=== PATIENT | female | born 1950 | race Caucasian/White ===

== ENCOUNTER 2017-01-08 10:23 | Inpatient (IN) | payer BC, OTHER ==
[~2017-01-08] VITALS: Ht 162.6 cm; Wt 43.0 kg
[~2017-01-08 10:23] MED LIST: ANCEF,KEFZ2 GM/100 M IV; ASPIRIN500 MG PO; Adderall PO; BACLOFEN10 MG PO; BACTRIM,SEPT1 TABLET PO; CLONAZEPAM0.5 MG PO; CLONIDINE HCL0.1 MG PO; DESYREL 150 MG150 MG PO; DESYREL100 MG PO; DEXILANT60 MG PO; DILAUDID1 MG/ML IV; DILAUDID2 MG PO; DOLOPHINE HCL5 MG PO; DURAGESIC75 MCG TD; EXALGO32 MG PO; HYDROCHLOROTH12.5 M3 PO; HYDROMORPHONE HC4 MG PO; IBUPROFEN100 M1 PO; LEVOFLOXACIN500 MG PO; LEXAPRO10 MG PO; LORAZEPAM0.5 MG PO; LOVENOX40 MG/0.4 SC; Lexapro PO; MACROBID100 MG PO; METHADONE5 MG PO; MORPHINE SULFAT15 M1 PO; MOTRIN800 MG PO; NEXIUM40 MG PO; OXYCODONE HCL20 M1 PO; OXYCODONE-APAP1 EACH PO; PERCOCET 5/31 TABLET PO; PROMETHAZINE HC25 M1 PO; SUBOXONE 12 MG1 EACH SL; SUBOXONE 8 M1 TABLET PO; TORADOL10 MG PO; TRAMADOL HCL50 MG PO; TRAZODONE HCL300 MG PO; TRILEPTAL150 MG PO; TRILEPTAL75 MG PO; TYLENOL REGULA325 MG PO; ULTRAM50 MG PO; ZANTAC300 MG PO; ZOFRAN ODT4 MG PO
[2017-01-08 10:38] LABS: POINT-OF-CARE METER ID UU14100415
[2017-01-08 11:15] LABS: ADD MIUA? YES; BILIRUBIN NEGATIVE; BLOOD SMALL; COLOR YELLOW ((YELLOW)); GLUCOSE (STRIP) NEGATIVE; KETONES 5; LEUKOCYTES NEGATIVE; NITRITE NEGATIVE; PROTEIN (STRIP) NEGATIVE; SPECIFIC GRAVITY 1.014 (1.000-1.030); UROBILINOGEN 0.2 MG/DL (0.2-1.0)
[2017-01-08 11:20] LABS: BACTERIA NONE SEEN /HPF; EPITHELIAL CELLS RARE /HPF; MUCUS TRACE /LPF; RED BLOOD CELLS 0-5 /HPF (0-5); UCUL ADDED? NO
[2017-01-08 11:48] LABS: AMPHETAMINES QUANT VALUE 0 NG/ML; BARBITUATES QUANT VALUE 0 NG/ML; BENZODIAZEPINES QUANT VALUE 0 NG/ML; BENZODIAZEPINES, URINE SCREEN Negative (200 ng/mL); MARIJUANA QUANT VALUE 0 NG/ML; OPIATES QUANTITATIVE VALUE 0 NG/ML; PHENCYCLIDINE QUANT VALUE 0 NG/ML
[2017-01-08 12:10] LABS: CREATININE 0.6 mg/dL (0.6-1.3); POTASSIUM 5.9 mEq/L (3.7-5.4)
[2017-01-08 12:26] LABS: EOSINOPHIL (%) 0.4 % (0-5); EOSINOPHIL COUNT 0.1 K/uL (0-0.3); HEMATOCRIT 35.6 % (36.0-46.0); IMMATURE GRANULOCYTE (%) 0.3 % (0.0-0.7); LYMPHOCYTE COUNT 0.9 K/uL (1.0-2.8); MCH 30.8 PG (29.0-34.0); MCHC 32.9 G/DL (30.0-36.0); MCV 93.7 FL (83-99); MEAN PLAT.VOLUME 10.8 uM^3 (9.5-12.4); NEUTROPHIL (%) 87.8 % (45-76); PLATELET COUNT 226 K/uL (156-360); RBC DIS.WIDTH-CV 13.1 % (11.8-14.6); RBC DIS.WIDTH-SD 44.4 % (39-53); WHITE BLOOD COUNT 15.9 K/uL (4.1-10.2)
[2017-01-08 12:32] LABS: AMYLASE 89 IU/L (1-118); CHLORIDE 101 mEq/L (99-109); POTASSIUM 4.3 mEq/L (3.7-5.4); SODIUM 136 mEq/L (136-147)
[2017-01-08 12:33] LABS: GLUCOSE 73 mg/dL (70-99)
[2017-01-08 12:35] LABS: ANION GAP 12 MEQ/L (2-14)
[2017-01-08 12:37] LABS: GFR ESTIMATE (CALCULATED) > 59 mL/min/; SERUM ETHYL ALCOHOL < 10 mg/dL
[2017-01-08 12:38] LABS: UREA NITROGEN (BUN) 11 mg/dL (9-23)
[2017-01-08 12:39] LABS: INTER. NORMALIZED RATIO 1.1; PROTHROMBIN TIME 11.3 (9.2-11.2); PTT 24.7 (25-32)
[2017-01-08 12:40] LABS: LIPASE 19 U/L (1.0-51.0)
[2017-01-08 12:43] LABS: TROP-I INTERPRETATION NEGATIVE; TROPONIN-I 0.02 ng/mL (0.0-0.30)
[2017-01-08 14:27] LABS: SALICYLATE < 5.0 MG/DL (15-30)
[2017-01-08 15:25] LABS: AMPHETAMINE NEGATIVE (500 ng/mL); BARBITURATES NEGATIVE (200 ng/mL); BENZODIAZEPINES NEGATIVE (150 ng/mL); COCAINE NEGATIVE (150 ng/mL); INTERNAL CONTROLS VALID? YES; METHADONE NEGATIVE (200 ng/mL); METHAMPHETAMINE NEGATIVE (500 ng/mL); OPIATES (MORPHINE) NEGATIVE (100 ng/mL); OXYCODONE NEGATIVE (100 ng/mL); PHENCYCLIDINE NEGATIVE (25 ng/mL); PROPOXYPHENE NEGATIVE (300 ng/mL); THC CANNABINOIDS NEGATIVE (50 ng/mL); TRICYCLIC ANTIDEPRESSANTS PRESUMPTIVE POSITIVE (300 ng/mL)
[2017-01-08] MEDS ORDERED: TRILEPTAL300 MG PO (16:33)
[2017-01-08] MEDS ORDERED: SUBOXONE 8 MG-1 EAC2 SL (16:35)
[2017-01-08] MEDS ORDERED: GABAPENTIN400 MG PO (16:35)
[2017-01-08] MEDS ORDERED: TIZANIDINE HCL4 MG PO (16:36)
[2017-01-08] MEDS ORDERED: MELOXICAM15 MG PO (16:36)
[2017-01-08] MEDS ORDERED: ZOFRAN4 MG PO (16:37)
[2017-01-08] MEDS ORDERED: MICROZIDE12.5 M1 PO (16:37)
[2017-01-08 16:47] LABS: TROP-I INTERPRETATION NEGATIVE; TROPONIN-I 0.03 ng/mL (0.0-0.30)
[2017-01-08 17:00] VITALS: BP 147/71
[2017-01-08 19:42] VITALS: BP 130/80
[2017-01-08 23:56] VITALS: BP 130/70
[2017-01-09 04:15] VITALS: BP 106/56
[2017-01-09 07:15] LABS: EOSINOPHIL (%) 1.6 % (0-5); EOSINOPHIL COUNT 0.2 K/uL (0-0.3); HEMATOCRIT 38.2 % (36.0-46.0); IMMATURE GRANULOCYTE (%) 0.2 % (0.0-0.7); LYMPHOCYTE COUNT 1.9 K/uL (1.0-2.8); MCH 29.5 PG (29.0-34.0); MCHC 31.7 G/DL (30.0-36.0); MCV 93.2 FL (83-99); MONOCYTE (%) 8.4 % (3-12); NEUTROPHIL (%) 73.8 % (45-76); NEUTROPHIL COUNT 9.1 K/uL (1.8-6.4); RBC DIS.WIDTH-CV 13.3 % (11.8-14.6); RBC DIS.WIDTH-SD 45.6 % (39-53); WHITE BLOOD COUNT 12.3 K/uL (4.1-10.2)
[2017-01-09 07:53] LABS: ANION GAP 10 MEQ/L (2-14); CHLORIDE 103 MEQ/L (99-109); GFR ESTIMATE (CALCULATED) > 59 mL/min/; GLUCOSE 85 mg/dL (70-99); SAMPLE HEMOLYSIS CHECK 0; SAMPLE ICTERIC CHECK 0; SAMPLE LIPEMIA CHECK 0; SODIUM 137 MEQ/L (136-147); UREA NITROGEN (BUN) 8 mg/dL (9-23)
[2017-01-09 09:00] VITALS: BP 100/57
[2017-01-09 09:33] LABS: MEAN PLAT.VOLUME 10.8 uM^3 (9.5-12.4); PLAT.SUFFICIENCY ADEQUATE; PLATELET COUNT 259 K/uL (156-360); USER ID STC
[2017-01-09] MEDS ORDERED: CLONAZEPAM0.5 MG PO (13:27)
[2017-01-09] MEDS ORDERED: DESYREL 150 MG150 MG PO (13:33)
[2017-01-09 14:00] LABS: ADD MIUA? YES; BILIRUBIN NEGATIVE; BLOOD SMALL; COLOR YELLOW ((YELLOW)); GLUCOSE (STRIP) NEGATIVE; KETONES 5; LEUKOCYTES LARGE; NITRITE NEGATIVE; PROTEIN (STRIP) NEGATIVE; SPECIFIC GRAVITY 1.014 (1.000-1.030); UROBILINOGEN 0.2 MG/DL (0.2-1.0)
[2017-01-09 14:10] LABS: BACTERIA NONE SEEN /HPF; EPITHELIAL CELLS NONE SEEN /HPF; MUCUS NONE SEEN /LPF; RED BLOOD CELLS 0-5 /HPF (0-5); UCUL ADDED? YES; WHITE BLOOD CELLS TNTC /HPF (0-5); WHITE BLOOD CELLS CLUMP RARE /HPF (0-5)
[2017-01-09 16:04] VITALS: BP 109/56
[2017-01-09 19:10] VITALS: BP 102/52
[2017-01-09 23:09] VITALS: BP 88/52
[2017-01-10 05:20] VITALS: BP 113/64
[2017-01-10 07:01] LABS: ANION GAP 11 MEQ/L (2-14); CHLORIDE 105 MEQ/L (99-109); GFR ESTIMATE (CALCULATED) > 59 mL/min/; GLUCOSE 100 mg/dL (70-99); SAMPLE HEMOLYSIS CHECK 1; SAMPLE ICTERIC CHECK 0; SAMPLE LIPEMIA CHECK 0; SODIUM 138 MEQ/L (136-147); UREA NITROGEN (BUN) 7 mg/dL (9-23)
[2017-01-10 07:08] LABS: POTASSIUM 3.4 MEQ/L (3.7-5.4)
[2017-01-10 08:00] VITALS: BP 120/63
[2017-01-10 10:06] LABS: EOSINOPHIL (%) 1.3 % (0-5); EOSINOPHIL COUNT 0.1 K/uL (0-0.3); HEMATOCRIT 34.3 % (36.0-46.0); IMMATURE GRANULOCYTE (%) 0.1 % (0.0-0.7); MCH 29.7 PG (29.0-34.0); MCHC 31.8 G/DL (30.0-36.0); MCV 93.5 FL (83-99); MEAN PLAT.VOLUME 10.8 uM^3 (9.5-12.4); MONOCYTE (%) 8.8 % (3-12); MONOCYTE COUNT 0.9 K/uL (0-0.8); PLATELET COUNT 191 K/uL (156-360); RBC DIS.WIDTH-CV 13.1 % (11.8-14.6); RBC DIS.WIDTH-SD 44.8 % (39-53); RED BLOOD COUNT 3.67 M/uL (3.80-5.20); WHITE BLOOD COUNT 9.9 K/uL (4.1-10.2)
[2017-01-10 16:30] VITALS: BP 98/61
[2017-01-10 19:55] VITALS: BP 90/51
[2017-01-11] VITALS (7 sets, daily range): BP systolic 82–143; BP diastolic 38–71
[2017-01-11 07:12] LABS: EOSINOPHIL (%) 2.9 % (0-5); EOSINOPHIL COUNT 0.2 K/uL (0-0.3); HEMATOCRIT 31.1 % (36.0-46.0); IMMATURE GRANULOCYTE (%) 0.2 % (0.0-0.7); LYMPHOCYTE COUNT 1.7 K/uL (1.0-2.8); MCH 30.3 PG (29.0-34.0); MCHC 32.2 G/DL (30.0-36.0); MCV 94.2 FL (83-99); MEAN PLAT.VOLUME 10.6 uM^3 (9.5-12.4); MONOCYTE (%) 12.1 % (3-12); MONOCYTE COUNT 0.7 K/uL (0-0.8); NEUTROPHIL (%) 54.9 % (45-76); NEUTROPHIL COUNT 3.2 K/uL (1.8-6.4); PLATELET COUNT 153 K/uL (156-360); RBC DIS.WIDTH-CV 13.1 % (11.8-14.6)
[2017-01-11 07:13] LABS: WHITE BLOOD COUNT 5.8 K/uL (4.1-10.2)
[2017-01-11 07:14] LABS: ANION GAP 6 MEQ/L (2-14); CHLORIDE 106 MEQ/L (99-109); GFR ESTIMATE (CALCULATED) > 59 mL/min/; GLUCOSE 98 mg/dL (70-99); POTASSIUM 3.8 MEQ/L (3.7-5.4); SAMPLE HEMOLYSIS CHECK 0; SAMPLE ICTERIC CHECK 0; SAMPLE LIPEMIA CHECK 0; SODIUM 139 MEQ/L (136-147); UREA NITROGEN (BUN) 4 mg/dL (9-23)
[2017-01-12 00:27] VITALS: BP 86/41
[2017-01-12 05:29] VITALS: BP 109/57
[2017-01-12 06:47] LABS: EOSINOPHIL (%) 3.2 % (0-5); EOSINOPHIL COUNT 0.2 K/uL (0-0.3); HEMATOCRIT 32.5 % (36.0-46.0); IMMATURE GRANULOCYTE (%) 0.2 % (0.0-0.7); LYMPHOCYTE COUNT 1.8 K/uL (1.0-2.8); MCH 29.9 PG (29.0-34.0); MCV 93.4 FL (83-99); MONOCYTE (%) 12.8 % (3-12); MONOCYTE COUNT 0.8 K/uL (0-0.8); NEUTROPHIL (%) 53.4 % (45-76); NEUTROPHIL COUNT 3.2 K/uL (1.8-6.4); RBC DIS.WIDTH-SD 44.1 % (39-53); RED BLOOD COUNT 3.48 M/uL (3.80-5.20); WHITE BLOOD COUNT 5.9 K/uL (4.1-10.2)
[2017-01-12 07:14] LABS: ANION GAP 7 MEQ/L (2-14); CHLORIDE 103 MEQ/L (99-109); GFR ESTIMATE (CALCULATED) > 59 mL/min/; GLUCOSE 99 mg/dL (70-99); POTASSIUM 4.2 MEQ/L (3.7-5.4); SAMPLE HEMOLYSIS CHECK 0; SAMPLE ICTERIC CHECK 0; SAMPLE LIPEMIA CHECK 0; SODIUM 139 MEQ/L (136-147); UREA NITROGEN (BUN) 5 mg/dL (9-23)
[2017-01-12 07:22] LABS: MEAN PLAT.VOLUME 10.3 uM^3 (9.5-12.4)
[2017-01-12 07:24] LABS: PLATELET COUNT 214 K/uL (156-360)
[2017-01-12 08:30] VITALS: BP 96/52
[2017-01-12] MEDS ORDERED: CIPRO500 MG PO (12:23)
== END 2017-01-12 15:55 | disposition home health service (06) | DRG 689 ==
LOC: EME 10:23 → EDOF 14:04 → 4EAST 14:04
PROVIDERS: Emergency Medicine; Family Medicine
DX: N39.0 Urinary tract infection, site not specified (principal); G92 Toxic encephalopathy; F11.20 Opioid dependence, uncomplicated; B96.20 Unspecified Escherichia coli [E. coli] as the cause of diseases classified elsewhere; E87.6 Hypokalemia; R33.9 Retention of urine, unspecified; R26.2 Difficulty in walking, not elsewhere classified; D64.9 Anemia, unspecified; G40.909 Epilepsy, unspecified, not intractable, without status epilepticus; F41.9 Anxiety disorder, unspecified; F31.9 Bipolar disorder, unspecified; K21.9 Gastro-esophageal reflux disease without esophagitis; G89.29 Other chronic pain; I25.2 Old myocardial infarction; Z85.038 Personal history of other malignant neoplasm of large intestine; Z98.1 Arthrodesis status; Z87.891 Personal history of nicotine dependence; Z88.0 Allergy status to penicillin
CPT/HCPCS: 70450; 70496; 70498; 71010; 80047; 80048; 80306 90; 81003; 82150; 82948; 83690; 84484; 85025; 85610; 85730; 86850; 86900; 86901; 87077; 87086; 87186; 94799; 99281; 99285; C9113; G0480; J0574; J1650; J1956; J2060

== ENCOUNTER 2017-08-03 13:31 | Emergency (ER) | payer BC, OTHER ==
[~2017-08-03] VITALS: Ht 152.4 cm; Wt 39.0 kg
[~2017-08-03 13:31] MED LIST changes: +CIPRO500 MG PO; +GABAPENTIN400 MG PO; +MELOXICAM15 MG PO; +MICROZIDE12.5 M1 PO; +SUBOXONE 8 MG-1 EAC2 SL; +TIZANIDINE HCL4 MG PO; +TRILEPTAL300 MG PO; +ZOFRAN4 MG PO
[2017-08-03 16:15] LABS: EOSINOPHIL (%) 1.3 % (0-5); EOSINOPHIL COUNT 0.1 K/uL (0-0.3); HEMATOCRIT 39.3 % (36.0-46.0); IMMATURE GRANULOCYTE (%) 0.2 % (0.0-0.7); INSTRUMENT ABS NEUTROPHIL CT 3.9 K/uL; LYMPHOCYTE COUNT 1.8 K/uL (1.0-2.8); MCHC 33.3 G/DL (30.0-36.0); MCV 86.9 FL (83-99); MEAN PLAT.VOLUME 10.5 uM^3 (9.5-12.4); MONOCYTE (%) 7.9 % (3-12); MONOCYTE COUNT 0.5 K/uL (0-0.8); NEUTROPHIL (%) 62.2 % (45-76); NEUTROPHIL COUNT 3.9 K/uL (1.8-6.4); PLATELET COUNT 211 K/uL (156-360); RBC DIS.WIDTH-CV 13.8 % (11.8-14.6); RBC DIS.WIDTH-SD 43.5 % (39-53); RED BLOOD COUNT 4.52 M/uL (3.80-5.20); WHITE BLOOD COUNT 6.3 K/uL (4.1-10.2)
[2017-08-03 17:17] LABS: CHLORIDE 104 mEq/L (99-109); POTASSIUM 3.8 mEq/L (3.7-5.4); SODIUM 138 mEq/L (136-147)
[2017-08-03 17:19] LABS: GLUCOSE 84 mg/dL (70-99)
[2017-08-03 17:20] LABS: ANION GAP 7 MEQ/L (2-14)
[2017-08-03 17:21] LABS: TOTAL BILIRUBIN 0.3 mg/dL (0.0-1.0)
[2017-08-03 17:22] LABS: ALKALINE PHOSPHATASE 99 IU/L (3-129)
[2017-08-03 17:23] LABS: GFR ESTIMATE (CALCULATED) > 59 mL/min/
[2017-08-03 17:24] LABS: UREA NITROGEN (BUN) 5 mg/dL (9-23)
[2017-08-03 20:00] LABS: ADD MIUA? YES; BILIRUBIN NEGATIVE; BLOOD NEGATIVE; COLOR YELLOW ((YELLOW)); GLUCOSE (STRIP) NEGATIVE; KETONES NEGATIVE; LEUKOCYTES TRACE; NITRITE NEGATIVE; PROTEIN (STRIP) NEGATIVE; SPECIFIC GRAVITY 1.016 (1.000-1.030); UROBILINOGEN 0.2 MG/DL (0.2-1.0)
[2017-08-03 20:06] LABS: BACTERIA NONE SEEN /HPF; EPITHELIAL CELLS RARE /HPF; MUCUS NONE SEEN /LPF; RED BLOOD CELLS 0-5 /HPF (0-5); UCUL ADDED? NO; WHITE BLOOD CELLS 0-5 /HPF (0-5)
[2017-08-03 21:23] VITALS: BP 107/60
== END 2017-08-03 21:23 | disposition home or self-care (01) ==
LOC: EME 13:31
PROVIDERS: Emergency Medicine
DX: S20.219A Contusion of unspecified front wall of thorax, initial encounter (principal); W10.9XXA Fall (on) (from) unspecified stairs and steps, initial encounter; F11.20 Opioid dependence, uncomplicated; M25.552 Pain in left hip; M54.9 Dorsalgia, unspecified; R10.32 Left lower quadrant pain; Z91.81 History of falling; I25.2 Old myocardial infarction; K21.9 Gastro-esophageal reflux disease without esophagitis; R56.9 Unspecified convulsions; Z98.1 Arthrodesis status; Z85.038 Personal history of other malignant neoplasm of large intestine; F17.200 Nicotine dependence, unspecified, uncomplicated
CPT/HCPCS: 70450; 71260; 72125; 73502; 74177; 80053; 81003; 85025; 99281; 99285; J3010; J7040

== ENCOUNTER 2017-09-24 11:01 | Inpatient (IN) | payer BC, OTHER ==
[~2017-09-24] VITALS: Ht 152.4 cm; Wt 36.4 kg
[2017-09-24 12:35] LABS: EOSINOPHIL (%) 0.6 % (0-5); HEMATOCRIT 32.2 % (36.0-46.0); IMMATURE GRANULOCYTE (%) 0.6 % (0.0-0.7); INSTRUMENT ABS NEUTROPHIL CT 5.4 K/uL; LYMPHOCYTE COUNT 1.1 K/uL (1.0-2.8); MCH 29.7 PG (29.0-34.0); MCHC 32.6 G/DL (30.0-36.0); MCV 91.2 FL (83-99); MEAN PLAT.VOLUME 9.9 uM^3 (9.5-12.4); MONOCYTE (%) 7.6 % (3-12); MONOCYTE COUNT 0.6 K/uL (0-0.8); NEUTROPHIL (%) 75.1 % (45-76); NEUTROPHIL COUNT 5.4 K/uL (1.8-6.4); PLATELET COUNT 319 K/uL (156-360); RBC DIS.WIDTH-CV 13.6 % (11.8-14.6); RBC DIS.WIDTH-SD 44.8 % (39-53); RED BLOOD COUNT 3.53 M/uL (3.80-5.20); WHITE BLOOD COUNT 7.2 K/uL (4.1-10.2)
[2017-09-24 12:50] LABS: CHLORIDE 98 mEq/L (99-109); SODIUM 140 mEq/L (136-147)
[2017-09-24 12:52] LABS: GLUCOSE 88 mg/dL (70-99); POTASSIUM 4.4 mEq/L (3.7-5.4)
[2017-09-24 12:53] LABS: ANION GAP 11 MEQ/L (2-14)
[2017-09-24 12:54] LABS: TOTAL BILIRUBIN 0.3 mg/dL (0.0-1.0)
[2017-09-24 12:55] LABS: SERUM ETHYL ALCOHOL < 10 mg/dL
[2017-09-24 12:56] LABS: ALKALINE PHOSPHATASE 92 IU/L (3-129); GFR ESTIMATE (CALCULATED) > 59 mL/min/
[2017-09-24 12:58] LABS: UREA NITROGEN (BUN) 6 mg/dL (9-23)
[2017-09-24 12:59] LABS: SALICYLATE < 5.0 MG/DL (15-30)
[2017-09-24 13:00] LABS: CREATINE KINASE 36 IU/L (1-294); TOTAL CK 36 IU/L (1-294)
[2017-09-24 13:06] LABS: CK-MB 2.2 ng/mL (0.0-4.9)
[2017-09-24 13:25] LABS: TROP-I INTERPRETATION NEGATIVE; TROPONIN-I < 0.01 ng/mL (0.0-0.30)
[2017-09-24] MEDS ORDERED: SANTYL30 GM TP (13:56)
[2017-09-24 15:15] VITALS: BP 105/53
[2017-09-25 00:12] VITALS: BP 110/76
[2017-09-25 05:47] LABS: HEMATOCRIT 26.6 % (36.0-46.0); MCH 29.5 PG (29.0-34.0); MCV 92.4 FL (83-99); MEAN PLAT.VOLUME 9.5 uM^3 (9.5-12.4); PLATELET COUNT 285 K/uL (156-360); RBC DIS.WIDTH-CV 13.7 % (11.8-14.6); RBC DIS.WIDTH-SD 46.4 % (39-53); RED BLOOD COUNT 2.88 M/uL (3.80-5.20); WHITE BLOOD COUNT 7.2 K/uL (4.1-10.2)
[2017-09-25 06:18] LABS: ANION GAP 3 MEQ/L (2-14); CHLORIDE 107 MEQ/L (99-109); GFR ESTIMATE (CALCULATED) > 59 mL/min/; GLUCOSE 98 mg/dL (70-99); POTASSIUM 3.9 MEQ/L (3.7-5.4); SAMPLE HEMOLYSIS CHECK 0; SAMPLE ICTERIC CHECK 0; SAMPLE LIPEMIA CHECK 0; SODIUM 138 MEQ/L (136-147); UREA NITROGEN (BUN) 9 mg/dL (9-23)
[2017-09-25 07:20] VITALS: BP 128/58
[2017-09-25 14:17] LABS: ABSOLUTE RETICULOCYTE CT. 0.1 M/uL (0.02-0.08); IMM.RETIC FRACTION 10.4 % (3-19); RETIC HGB EQUIVALENT 32.9 (28-36); RETICULOCYTE COUNT 3.4 % (0.5-1.8)
[2017-09-25 14:47] LABS: IRON 22 MCG/DL (35-150)
[2017-09-25 15:00] VITALS: BP 106/51
[2017-09-25 23:14] VITALS: BP 96/52
[2017-09-26 06:53] LABS: ANION GAP 6 MEQ/L (2-14); CHLORIDE 102 MEQ/L (99-109); GFR ESTIMATE (CALCULATED) > 59 mL/min/; GLUCOSE 90 mg/dL (70-99); POTASSIUM 4.1 MEQ/L (3.7-5.4); SAMPLE HEMOLYSIS CHECK 0; SAMPLE ICTERIC CHECK 0; SAMPLE LIPEMIA CHECK 0; UREA NITROGEN (BUN) 9 mg/dL (9-23)
[2017-09-26 06:54] LABS: SODIUM 130 MEQ/L (136-147)
[2017-09-26 07:08] LABS: EOSINOPHIL (%) 0.7 % (0-5); EOSINOPHIL COUNT 0.1 K/uL (0-0.3); HEMATOCRIT 35.7 % (36.0-46.0); IMMATURE GRANULOCYTE (%) 0.2 % (0.0-0.7); INSTRUMENT ABS NEUTROPHIL CT 5.7 K/uL; LYMPHOCYTE COUNT 1.9 K/uL (1.0-2.8); MCH 29.3 PG (29.0-34.0); MCHC 31.4 G/DL (30.0-36.0); MCV 93.5 FL (83-99); MONOCYTE (%) 8.8 % (3-12); MONOCYTE COUNT 0.7 K/uL (0-0.8); NEUTROPHIL (%) 67.9 % (45-76); NEUTROPHIL COUNT 5.7 K/uL (1.8-6.4); RBC DIS.WIDTH-CV 13.6 % (11.8-14.6); RBC DIS.WIDTH-SD 46.3 % (39-53); WHITE BLOOD COUNT 8.5 K/uL (4.1-10.2)
[2017-09-26 07:09] LABS: RED BLOOD COUNT 3.82 M/uL (3.80-5.20)
[2017-09-26 07:37] LABS: HEMATOLOGY COMMENT 1 SMEAR COMPATIBLE; PLAT.SUFFICIENCY ADEQUATE; PLATELET COUNT UNABLE TO REPORT K/uL (156-360)
[2017-09-26 08:00] VITALS: BP 140/63
[2017-09-26 08:01] VITALS: BP 129/62
[2017-09-26 16:29] VITALS: BP 131/79
[2017-09-26 21:54] LABS: MCH 30.1 PG (29.0-34.0); MCHC 33.1 G/DL (30.0-36.0); MCV 90.9 FL (83-99); MEAN PLAT.VOLUME 9.6 uM^3 (9.5-12.4); PLATELET COUNT 314 K/uL (156-360); RBC DIS.WIDTH-CV 13.5 % (11.8-14.6); RBC DIS.WIDTH-SD 44.9 % (39-53); RED BLOOD COUNT 3.52 M/uL (3.80-5.20); WHITE BLOOD COUNT 10.1 K/uL (4.1-10.2)
[2017-09-26 22:00] LABS: INTER. NORMALIZED RATIO 1.1; PROTHROMBIN TIME 12.1 SEC (10.2-12.9)
[2017-09-26 22:02] LABS: CHLORIDE 102 mEq/L (99-109); POTASSIUM 3.7 mEq/L (3.7-5.4); SODIUM 130 mEq/L (136-147)
[2017-09-26 22:03] LABS: MAGNESIUM 1.1 mg/dL (1.3-2.7); PTT 29.5 SEC (25-37)
[2017-09-26 22:05] LABS: GLUCOSE 95 mg/dL (70-99)
[2017-09-26 22:06] LABS: ANION GAP 7 MEQ/L (2-14)
[2017-09-26 22:07] LABS: TOTAL BILIRUBIN 0.3 mg/dL (0.0-1.0)
[2017-09-26 22:09] LABS: ALKALINE PHOSPHATASE 86 IU/L (3-129); GFR ESTIMATE (CALCULATED) > 59 mL/min/
[2017-09-26 22:10] LABS: DIRECT BILIRUBIN 0.2 mg/dL (0.0-0.3); UREA NITROGEN (BUN) 5 mg/dL (9-23)
[2017-09-26 22:15] LABS: TROP-I INTERPRETATION NEGATIVE; TROPONIN-I < 0.01 ng/mL (0.0-0.30)
[2017-09-27 00:31] VITALS: BP 128/68
[2017-09-27 03:23] VITALS: BP 116/57
[2017-09-27 07:01] LABS: EOSINOPHIL (%) 0.6 % (0-5); EOSINOPHIL COUNT 0.1 K/uL (0-0.3); HEMATOCRIT 28.6 % (36.0-46.0); IMMATURE GRANULOCYTE (%) 0.4 % (0.0-0.7); LYMPHOCYTE COUNT 1.6 K/uL (1.0-2.8); MCH 30.4 PG (29.0-34.0); MCHC 33.9 G/DL (30.0-36.0); MCV 89.7 FL (83-99); MEAN PLAT.VOLUME 11.2 uM^3 (9.5-12.4); MONOCYTE (%) 13.8 % (3-12); MONOCYTE COUNT 1.2 K/uL (0-0.8); NEUTROPHIL (%) 66.6 % (45-76); PLATELET COUNT 245 K/uL (156-360); RBC DIS.WIDTH-CV 13.5 % (11.8-14.6); RBC DIS.WIDTH-SD 44.1 % (39-53); RED BLOOD COUNT 3.19 M/uL (3.80-5.20)
[2017-09-27 07:09] LABS: ANION GAP 6 MEQ/L (2-14); CHLORIDE 101 MEQ/L (99-109); GFR ESTIMATE (CALCULATED) > 59 mL/min/; GLUCOSE 93 mg/dL (70-99); POTASSIUM 3.9 MEQ/L (3.7-5.4); SAMPLE HEMOLYSIS CHECK 0; SAMPLE ICTERIC CHECK 0; SAMPLE LIPEMIA CHECK 0; SODIUM 131 MEQ/L (136-147); UREA NITROGEN (BUN) 6 mg/dL (9-23)
[2017-09-27 07:28] LABS: TROP-I INTERPRETATION NEGATIVE; TROPONIN-I < 0.01 ng/mL (0.0-0.30)
[2017-09-27 08:08] VITALS: BP 121/70
[2017-09-27 11:32] VITALS: BP 110/57; BP 82/57
[2017-09-27 12:10] LABS: TROP-I INTERPRETATION NEGATIVE; TROPONIN-I < 0.01 ng/mL (0.0-0.30)
[2017-09-27 16:00] VITALS: BP 95/49
[2017-09-28 00:12] VITALS: BP 98/60
[2017-09-28 05:38] LABS: EOSINOPHIL (%) 0.7 % (0-5); EOSINOPHIL COUNT 0.1 K/uL (0-0.3); HEMATOCRIT 28.4 % (36.0-46.0); IMMATURE GRANULOCYTE (%) 0.4 % (0.0-0.7); INSTRUMENT ABS NEUTROPHIL CT 5.2 K/uL; LYMPHOCYTE COUNT 1.2 K/uL (1.0-2.8); MCH 29.5 PG (29.0-34.0); MCHC 33.5 G/DL (30.0-36.0); MCV 88.2 FL (83-99); MONOCYTE COUNT 0.7 K/uL (0-0.8); NEUTROPHIL (%) 72.3 % (45-76); NEUTROPHIL COUNT 5.2 K/uL (1.8-6.4); RBC DIS.WIDTH-CV 13.2 % (11.8-14.6); RBC DIS.WIDTH-SD 42.8 % (39-53); RED BLOOD COUNT 3.22 M/uL (3.80-5.20); WHITE BLOOD COUNT 7.2 K/uL (4.1-10.2)
[2017-09-28 06:11] LABS: MEAN PLAT.VOLUME 11.3 uM^3 (9.5-12.4); PLAT.SUFFICIENCY ADEQUATE; PLATELET COUNT 236 K/uL (156-360)
[2017-09-28 06:21] LABS: ALKALINE PHOSPHATASE 71 IU/L (3-129); ANION GAP 6 MEQ/L (2-14); CHLORIDE 99 MEQ/L (99-109); GFR ESTIMATE (CALCULATED) > 59 mL/min/; GLUCOSE 104 mg/dL (70-99); POTASSIUM 3.5 MEQ/L (3.7-5.4); SAMPLE HEMOLYSIS CHECK 0; SAMPLE ICTERIC CHECK 0; SAMPLE LIPEMIA CHECK 0; SODIUM 129 MEQ/L (136-147); TOTAL BILIRUBIN 0.2 MG/DL (0.0-1.0); UREA NITROGEN (BUN) 4 mg/dL (9-23)
[2017-09-28 07:55] VITALS: BP 123/58
[2017-09-28 16:42] VITALS: BP 122/60
[2017-09-28 23:46] VITALS: BP 116/62
[2017-09-29 06:41] LABS: ANION GAP 6 MEQ/L (2-14); CHLORIDE 99 MEQ/L (99-109); GFR ESTIMATE (CALCULATED) > 59 mL/min/; GLUCOSE 75 mg/dL (70-99); SAMPLE HEMOLYSIS CHECK 0; SAMPLE ICTERIC CHECK 0; SAMPLE LIPEMIA CHECK 0; SODIUM 130 MEQ/L (136-147); UREA NITROGEN (BUN) 5 mg/dL (9-23)
[2017-09-29 06:43] LABS: POTASSIUM 4.5 MEQ/L (3.7-5.4)
[2017-09-29 06:54] VITALS: BP 122/70
[2017-09-29 11:20] VITALS: BP 110/69
[2017-09-29 22:50] VITALS: BP 109/57
[2017-09-30 06:56] LABS: EOSINOPHIL (%) 0.4 % (0-5); HEMATOCRIT 33.6 % (36.0-46.0); IMMATURE GRANULOCYTE (%) 0.4 % (0.0-0.7); INSTRUMENT ABS NEUTROPHIL CT 4.7 K/uL; LYMPHOCYTE COUNT 1.5 K/uL (1.0-2.8); MCH 30.4 PG (29.0-34.0); MCHC 34.5 G/DL (30.0-36.0); MEAN PLAT.VOLUME 11.6 uM^3 (9.5-12.4); MONOCYTE (%) 7.5 % (3-12); MONOCYTE COUNT 0.5 K/uL (0-0.8); NEUTROPHIL (%) 69.1 % (45-76); NEUTROPHIL COUNT 4.7 K/uL (1.8-6.4); PLATELET COUNT 249 K/uL (156-360); RBC DIS.WIDTH-CV 13.7 % (11.8-14.6); RBC DIS.WIDTH-SD 44.1 % (39-53); RED BLOOD COUNT 3.82 M/uL (3.80-5.20); WHITE BLOOD COUNT 6.8 K/uL (4.1-10.2)
[2017-09-30 07:13] LABS: ANION GAP 9 MEQ/L (2-14); CHLORIDE 94 MEQ/L (99-109); GFR ESTIMATE (CALCULATED) > 59 mL/min/; GLUCOSE 83 mg/dL (70-99); POTASSIUM 4.3 MEQ/L (3.7-5.4); SAMPLE HEMOLYSIS CHECK 0; SAMPLE ICTERIC CHECK 0; SAMPLE LIPEMIA CHECK 0; SODIUM 128 MEQ/L (136-147); UREA NITROGEN (BUN) 5 mg/dL (9-23)
[2017-09-30 08:22] VITALS: BP 123/60
[2017-09-30 15:25] VITALS: BP 110/55
[2017-09-30 22:30] VITALS: BP 109/56
[2017-10-01 06:40] LABS: ANION GAP 5 MEQ/L (2-14); CHLORIDE 95 MEQ/L (99-109); GFR ESTIMATE (CALCULATED) > 59 mL/min/; GLUCOSE 91 mg/dL (70-99); POTASSIUM 3.7 MEQ/L (3.7-5.4); SAMPLE HEMOLYSIS CHECK 0; SAMPLE ICTERIC CHECK 0; SAMPLE LIPEMIA CHECK 0; SODIUM 128 MEQ/L (136-147); UREA NITROGEN (BUN) 4 mg/dL (9-23)
[2017-10-01 07:40] VITALS: BP 123/60
[2017-10-01 15:30] VITALS: BP 122/60
[2017-10-01 23:43] VITALS: BP 112/52
[2017-10-02 07:14] VITALS: BP 108/58
[2017-10-02 17:01] VITALS: BP 110/58; BP 128/60
[2017-10-02 23:16] VITALS: BP 112/55
[2017-10-03 06:36] LABS: ANION GAP 6 MEQ/L (2-14); CHLORIDE 96 MEQ/L (99-109); GFR ESTIMATE (CALCULATED) > 59 mL/min/; GLUCOSE 91 mg/dL (70-99); POTASSIUM 3.8 MEQ/L (3.7-5.4); SAMPLE HEMOLYSIS CHECK 0; SAMPLE ICTERIC CHECK 0; SAMPLE LIPEMIA CHECK 0; SODIUM 129 MEQ/L (136-147); UREA NITROGEN (BUN) 8 mg/dL (9-23)
[2017-10-03 07:26] VITALS: BP 128/58
[2017-10-03 11:13] VITALS: BP 128/58
[2017-10-03] MEDS ORDERED: FERROUS SULFAT325 MG PO (13:58)
[2017-10-03] MEDS ORDERED: CLONAZEPAM0.5 MG PO (14:00)
[2017-10-03] MEDS ORDERED: PERCOCET 10/1 TABLET PO (14:30)
== END 2017-10-03 15:43 | disposition home health service (06) | DRG 570 ==
LOC: EME 11:01 → EDOF 12:51 → 5EAST 12:51 → ENRESERV 12:54 → 5EAST 14:58 → ENPENDDIS 10-03 → 5EAST 10-03 15:43
PROVIDERS: Emergency Medicine; Family Medicine; Hospitalist
DX: L89.314 Pressure ulcer of right buttock, stage 4 (principal); L89.320 Pressure ulcer of left buttock, unstageable; L89.620 Pressure ulcer of left heel, unstageable; L89.893 Pressure ulcer of other site, stage 3; E43 Unspecified severe protein-calorie malnutrition; R64 Cachexia; R62.7 Adult failure to thrive; E86.0 Dehydration; F11.20 Opioid dependence, uncomplicated; E83.39 Other disorders of phosphorus metabolism; E83.42 Hypomagnesemia; E87.1 Hypo-osmolality and hyponatremia; S81.802A Unspecified open wound, left lower leg, initial encounter; R41.82 Altered mental status, unspecified; D64.9 Anemia, unspecified; K25.3 Acute gastric ulcer without hemorrhage or perforation; K29.70 Gastritis, unspecified, without bleeding; I25.10 Atherosclerotic heart disease of native coronary artery without angina pectoris; K59.03 Drug induced constipation; T40.2X5A Adverse effect of other opioids, initial encounter; G89.29 Other chronic pain; G40.909 Epilepsy, unspecified, not intractable, without status epilepticus; F41.9 Anxiety disorder, unspecified; K21.9 Gastro-esophageal reflux disease without esophagitis; K44.9 Diaphragmatic hernia without obstruction or gangrene; F17.210 Nicotine dependence, cigarettes, uncomplicated; Z96.649 Presence of unspecified artificial hip joint; Z87.11 Personal history of peptic ulcer disease; Z87.440 Personal history of urinary (tract) infections; Z68.1 Body mass index [BMI] 19.9 or less, adult; I25.2 Old myocardial infarction; Z85.038 Personal history of other malignant neoplasm of large intestine; Z98.1 Arthrodesis status; Z23 Encounter for immunization; Z90.49 Acquired absence of other specified parts of digestive tract; Z88.0 Allergy status to penicillin
CPT/HCPCS: 70450; 71010; 78582; 80048; 80048 91; 80053; 80069; 80076; 81003; 82550; 82553; 82607; 82746; 83540; 83605; 83735; 84100; 84466; 84484; 85025; 85027; 85045; 85379; 85610; 85730; 88305; 88342 TC; 90686; 93005; 94799; 95819; 97530 GP; 99281; 99285; A6260; A9540; A9567; G0480; J0330; J0574; J1100; J1170; J1650; J2060; J2250; J2270; J2405; J3010; J3475; J7030; J7042; S0028

== ENCOUNTER 2017-12-09 23:37 | Emergency (ER) | payer BC, OTHER ==
[~2017-12-09] VITALS: Ht 154.9 cm; Wt 36.0 kg
[~2017-12-09 23:37] MED LIST changes: +FERROUS SULFAT325 MG PO; +PERCOCET 10/1 TABLET PO; +SANTYL30 GM TP
[2017-12-10 02:19] LABS: HEMATOCRIT 29.5 % (36.0-46.0); HEMOGLOBIN 9.6 G/DL (11.9-15.5); MCH 28.9 PG (29.0-34.0); MCHC 32.5 G/DL (30.0-36.0); MCV 88.9 FL (83-99); PLATELET COUNT 283 K/uL (156-360); RBC DIS.WIDTH-SD 47.8 % (39-53); RED BLOOD COUNT 3.32 M/uL (3.80-5.20); WHITE BLOOD COUNT 11.5 K/uL (4.1-10.2)
[2017-12-10 02:34] LABS: ALBUMIN 3.9 g/dL (3.2-4.8)
[2017-12-10 02:35] LABS: CHLORIDE 99 mEq/L (99-109); SODIUM 133 mEq/L (136-147)
[2017-12-10 02:37] LABS: GLUCOSE 109 mg/dL (70-99); TOTAL PROTEIN 6.3 g/dL (6.4-8.3)
[2017-12-10 02:39] LABS: TOTAL BILIRUBIN 0.7 mg/dL (0.0-1.0)
[2017-12-10 02:40] LABS: ALKALINE PHOSPHATASE 99 IU/L (3-129)
[2017-12-10 02:41] LABS: CREATININE 0.6 mg/dL (0.6-1.3); GFR ESTIMATE (CALCULATED) > 59 mL/min/
[2017-12-10 02:42] LABS: AST (GOT) 14 IU/L (2-34); UREA NITROGEN (BUN) 12 mg/dL (9-23)
[2017-12-10 02:43] LABS: ALT (GPT) 13 IU/L (3-49)
[2017-12-10 02:44] LABS: LIPASE 17 U/L (1.0-51.0)
[2017-12-10 03:59] LABS: APPEARANCE CLEAR ((CLEAR)); BILIRUBIN NEGATIVE; BLOOD SMALL; COLOR AMBER ((YELLOW)); GLUCOSE (STRIP) NEGATIVE; KETONES NEGATIVE; LEUKOCYTES SMALL; NITRITE POSITIVE; PROTEIN (STRIP) NEGATIVE; SPECIFIC GRAVITY 1.008 (1.000-1.030); UROBILINOGEN 0.2 MG/DL (0.2-1.0)
[2017-12-10] MEDS ORDERED: ZOFRAN4 MG PO (04:59)
[2017-12-10] MEDS ORDERED: BENTYL20 MG PO (05:00)
[2017-12-10 05:01] LABS: BACTERIA RARE /HPF; EPITHELIAL CELLS RARE /HPF; MUCUS NONE SEEN /LPF; RED BLOOD CELLS 0-5 /HPF (0-5); UCUL ADDED? NO; WHITE BLOOD CELLS 0-5 /HPF (0-5)
[2017-12-10] MEDS ORDERED: BACTRIM,SEPT1 TABLET PO (05:22)
[2017-12-10 05:41] VITALS: BP 152/79
== END 2017-12-10 05:42 | disposition home or self-care (01) ==
LOC: EME 23:37
PROVIDERS: Emergency Medicine
DX: T40.2X2A Poisoning by other opioids, intentional self-harm, initial encounter (principal); N39.0 Urinary tract infection, site not specified; R11.0 Nausea; K21.9 Gastro-esophageal reflux disease without esophagitis; F41.9 Anxiety disorder, unspecified; F32.9 Major depressive disorder, single episode, unspecified; F17.200 Nicotine dependence, unspecified, uncomplicated; I25.2 Old myocardial infarction; Z85.038 Personal history of other malignant neoplasm of large intestine; Z90.49 Acquired absence of other specified parts of digestive tract; Z88.0 Allergy status to penicillin; Z88.6 Allergy status to analgesic agent
CPT/HCPCS: 80053; 81003; 83690; 85027; 93005; 99281; 99285

== ENCOUNTER 2018-01-16 15:43 | Emergency (ER) | payer BC, OTHER ==
[~2018-01-16] VITALS: Ht 152.4 cm; Wt 44.0 kg
[~2018-01-16 15:43] MED LIST changes: +BENTYL20 MG PO
[2018-01-16 16:40] LABS: HEMATOCRIT 28.3 % (36.0-46.0); HEMOGLOBIN 9.3 G/DL (11.9-15.5); MCH 30.2 PG (29.0-34.0); MCHC 32.9 G/DL (30.0-36.0); MCV 91.9 FL (83-99); PLATELET COUNT 283 K/uL (156-360); RBC DIS.WIDTH-CV 15.9 % (11.8-14.6); RBC DIS.WIDTH-SD 52.7 % (39-53); RED BLOOD COUNT 3.08 M/uL (3.80-5.20); WHITE BLOOD COUNT 7.5 K/uL (4.1-10.2)
[2018-01-16 16:46] LABS: COLOR ORANGE ((YELLOW))
[2018-01-16 16:47] LABS: APPEARANCE SL.HAZY ((CLEAR)); BILIRUBIN LARGE; BLOOD LARGE; GLUCOSE (STRIP) NEGATIVE; ICTOTEST NEGATIVE; KETONES NEGATIVE; LEUKOCYTES NEGATIVE; SPECIFIC GRAVITY 1.006 (1.000-1.030)
[2018-01-16 16:54] LABS: ALBUMIN 3.6 g/dL (3.2-4.8); CHLORIDE 98 mEq/L (99-109); POTASSIUM 3.8 mEq/L (3.7-5.4); SODIUM 133 mEq/L (136-147)
[2018-01-16 16:57] LABS: GLUCOSE 105 mg/dL (70-99); TOTAL PROTEIN 6.4 g/dL (6.4-8.3)
[2018-01-16 16:59] LABS: TOTAL BILIRUBIN 0.6 mg/dL (0.0-1.0)
[2018-01-16 17:00] LABS: ALKALINE PHOSPHATASE 94 IU/L (3-129); CREATININE 0.8 mg/dL (0.6-1.3); GFR ESTIMATE (CALCULATED) > 59 mL/min/
[2018-01-16 17:01] LABS: UREA NITROGEN (BUN) 10 mg/dL (9-23)
[2018-01-16 17:02] LABS: AST (GOT) 20 IU/L (2-34)
[2018-01-16 17:03] LABS: ALT (GPT) 12 IU/L (3-49)
[2018-01-16 17:04] LABS: LIPASE 16 U/L (1.0-51.0)
[2018-01-16 17:14] LABS: BACTERIA 1+ /HPF; EPITHELIAL CELLS RARE /HPF; MUCUS RARE /LPF; UCUL ADDED? NO; WHITE BLOOD CELLS 0-5 /HPF (0-5)
[2018-01-16 18:05] LABS: CREATINE KINASE 42 IU/L (1-294)
[2018-01-16] MEDS ORDERED: NORCO 5/3251 TABLET PO (18:31)
[2018-01-16 19:00] VITALS: BP 118/63
== END 2018-01-16 19:48 | disposition home or self-care (01) ==
LOC: EME 15:43
PROVIDERS: Emergency Medicine
DX: R31.9 Hematuria, unspecified (principal); R10.9 Unspecified abdominal pain; D64.9 Anemia, unspecified; Z87.440 Personal history of urinary (tract) infections; F31.9 Bipolar disorder, unspecified; I25.2 Old myocardial infarction; K21.9 Gastro-esophageal reflux disease without esophagitis; R56.9 Unspecified convulsions; F41.9 Anxiety disorder, unspecified; Z88.0 Allergy status to penicillin; Z88.6 Allergy status to analgesic agent; F17.200 Nicotine dependence, unspecified, uncomplicated; Z85.038 Personal history of other malignant neoplasm of large intestine
CPT/HCPCS: 74177; 80053; 81003; 82550; 83690; 85027; 99281; 99285; J1885; J2270; J7040

== ENCOUNTER 2018-01-20 11:18 | Inpatient (IN) | payer BC, OTHER ==
[~2018-01-20] VITALS: Ht 152.4 cm; Wt 44.9 kg
[~2018-01-20 11:18] MED LIST changes: +NORCO 5/3251 TABLET PO
[2018-01-20 12:00] LABS: BASOPHIL (%) 0.2 % (0-1); EOSINOPHIL (%) 3.6 % (0-5); EOSINOPHIL COUNT 0.4 K/uL (0-0.3); HEMATOCRIT 27.8 % (36.0-46.0); HEMOGLOBIN 8.9 G/DL (11.9-15.5); IMMATURE GRANULOCYTE (%) 0.4 % (0.0-0.7); LYMPHOCYTE (%) 15.4 % (15-42); LYMPHOCYTE COUNT 1.5 K/uL (1.0-2.8); MCH 29.4 PG (29.0-34.0); MCV 91.7 FL (83-99); MONOCYTE COUNT 0.8 K/uL (0-0.8); NEUTROPHIL (%) 72.4 % (45-76); NEUTROPHIL COUNT 7.1 K/uL (1.8-6.4); PLATELET COUNT 254 K/uL (156-360); RBC DIS.WIDTH-CV 16.8 % (11.8-14.6); RBC DIS.WIDTH-SD 56.3 % (39-53); RED BLOOD COUNT 3.03 M/uL (3.80-5.20); WHITE BLOOD COUNT 9.9 K/uL (4.1-10.2)
[2018-01-20 12:00] LABS: APPEARANCE CLEAR ((CLEAR)); BILIRUBIN NEGATIVE; BLOOD NEGATIVE; COLOR AMBER ((YELLOW)); GLUCOSE (STRIP) NEGATIVE; KETONES NEGATIVE; LEUKOCYTES NEGATIVE; NITRITE POSITIVE; PROTEIN (STRIP) NEGATIVE
[2018-01-20 12:06] LABS: BACTERIA NONE SEEN /HPF; CALCIUM OXALATE CRYSTALS 1+ /HPF; EPITHELIAL CELLS RARE /HPF; MUCUS NONE SEEN /LPF; RED BLOOD CELLS 0-5 /HPF (0-5); UCUL ADDED? NO; WHITE BLOOD CELLS 0-5 /HPF (0-5)
[2018-01-20 12:13] LABS: CHLORIDE 96 mEq/L (99-109); POTASSIUM 4.4 mEq/L (3.7-5.4); SODIUM 134 mEq/L (136-147)
[2018-01-20 12:14] LABS: GLUCOSE 94 mg/dL (70-99)
[2018-01-20 12:18] LABS: CREATININE 0.7 mg/dL (0.6-1.3); GFR ESTIMATE (CALCULATED) > 59 mL/min/
[2018-01-20 12:19] LABS: UREA NITROGEN (BUN) 14 mg/dL (9-23)
[2018-01-20 21:07] VITALS: BP 107/53
[2018-01-21] VITALS (10 sets, daily range): BP systolic 76–117; BP diastolic 37–76
[2018-01-21 06:17] LABS: HEMATOCRIT 22.5 % (36.0-46.0); HEMOGLOBIN 7.1 G/DL (11.9-15.5); MCH 29.5 PG (29.0-34.0); MCHC 31.6 G/DL (30.0-36.0); MCV 93.4 FL (83-99); PLATELET COUNT 250 K/uL (156-360); RBC DIS.WIDTH-CV 16.8 % (11.8-14.6); RBC DIS.WIDTH-SD 57.1 % (39-53); WHITE BLOOD COUNT 10.1 K/uL (4.1-10.2)
[2018-01-21 06:18] LABS: RED BLOOD COUNT 2.41 M/uL (3.80-5.20)
[2018-01-21 06:44] LABS: ALBUMIN 2.7 G/DL (3.2-4.8); ALKALINE PHOSPHATASE 59 IU/L (3-129); ALT (GPT) 5 IU/L (3-49); AST (GOT) 9 IU/L (2-34); CHLORIDE 105 MEQ/L (99-109); CREATININE 0.5 MG/DL (0.6-1.3); GFR ESTIMATE (CALCULATED) > 59 mL/min/; GLUCOSE 93 mg/dL (70-99); POTASSIUM 4.1 MEQ/L (3.7-5.4); SODIUM 140 MEQ/L (136-147); TOTAL BILIRUBIN 0.4 MG/DL (0.0-1.0); TOTAL PROTEIN 4.7 G/DL (6.4-8.3); UREA NITROGEN (BUN) 9 mg/dL (9-23)
[2018-01-22 03:31] VITALS: BP 97/54
[2018-01-22 06:48] LABS: HEMATOCRIT 31.6 % (36.0-46.0); MCH 29.1 PG (29.0-34.0); MCHC 32.3 G/DL (30.0-36.0); PLATELET COUNT 270 K/uL (156-360); RBC DIS.WIDTH-CV 16.8 % (11.8-14.6); RBC DIS.WIDTH-SD 55.2 % (39-53); WHITE BLOOD COUNT 11.5 K/uL (4.1-10.2)
[2018-01-22 06:56] LABS: CHLORIDE 105 MEQ/L (99-109); CREATININE 0.4 MG/DL (0.6-1.3); GFR ESTIMATE (CALCULATED) > 59 mL/min/; POTASSIUM 4.4 MEQ/L (3.7-5.4); SODIUM 138 MEQ/L (136-147); UREA NITROGEN (BUN) 12 mg/dL (9-23)
[2018-01-22 07:00] LABS: GLUCOSE 140 mg/dL (70-99)
[2018-01-22 07:06] LABS: HEMOGLOBIN 10.2 G/DL (11.9-15.5); RED BLOOD COUNT 3.51 M/uL (3.80-5.20)
[2018-01-22 07:32] VITALS: BP 101/58
[2018-01-22 11:13] VITALS: BP 123/60
[2018-01-22 15:13] VITALS: BP 127/59
[2018-01-22 19:23] VITALS: BP 133/69
[2018-01-22 22:53] VITALS: BP 116/58
[2018-01-23 02:51] VITALS: BP 102/58
[2018-01-23 07:37] VITALS: BP 121/56
[2018-01-23 11:10] VITALS: BP 125/59
[2018-01-23 15:21] VITALS: BP 128/62
[2018-01-23 19:03] VITALS: BP 113/69
[2018-01-23 22:48] VITALS: BP 119/59
[2018-01-24 03:46] VITALS: BP 117/53
[2018-01-24 07:48] VITALS: BP 142/68
[2018-01-24 11:47] VITALS: BP 121/59
[2018-01-24 16:17] VITALS: BP 118/58
[2018-01-24 19:00] VITALS: BP 130/78
[2018-01-24 19:35] LABS: STOOL OCCULT BLD 1ST SPECIMEN NEGATIVE
[2018-01-25 00:29] VITALS: BP 117/89
[2018-01-25 05:07] VITALS: BP 124/73
[2018-01-25 06:55] VITALS: BP 116/58
[2018-01-25] MEDS ORDERED: ZOFRAN ODT4 MG PO (12:40)
[2018-01-25] MEDS ORDERED: KLONOPIN1 MG PO (12:41)
[2018-01-25 15:15] VITALS: BP 159/74
[2018-01-25 23:01] VITALS: BP 147/76
[2018-01-26 06:00] LABS: BASOPHIL (%) 0.3 % (0-1); EOSINOPHIL (%) 0.9 % (0-5); EOSINOPHIL COUNT 0.1 K/uL (0-0.3); HEMATOCRIT 30.8 % (36.0-46.0); HEMOGLOBIN 10.5 G/DL (11.9-15.5); IMMATURE GRANULOCYTE (%) 0.5 % (0.0-0.7); LYMPHOCYTE (%) 20.1 % (15-42); LYMPHOCYTE COUNT 1.9 K/uL (1.0-2.8); MCHC 34.1 G/DL (30.0-36.0); MONOCYTE (%) 9.8 % (3-12); MONOCYTE COUNT 0.9 K/uL (0-0.8); NEUTROPHIL (%) 68.4 % (45-76); NEUTROPHIL COUNT 6.5 K/uL (1.8-6.4); PLATELET COUNT 259 K/uL (156-360); RBC DIS.WIDTH-CV 15.9 % (11.8-14.6); RBC DIS.WIDTH-SD 50.7 % (39-53); WHITE BLOOD COUNT 9.6 K/uL (4.1-10.2)
[2018-01-26 06:40] LABS: CREATININE 0.3 MG/DL (0.6-1.3); GFR ESTIMATE (CALCULATED) > 59 mL/min/; GLUCOSE 85 mg/dL (70-99); POTASSIUM 3.9 MEQ/L (3.7-5.4); UREA NITROGEN (BUN) 9 mg/dL (9-23)
[2018-01-26 06:42] LABS: CHLORIDE 94 MEQ/L (99-109); SODIUM 130 MEQ/L (136-147)
[2018-01-26 07:01] VITALS: BP 131/61
[2018-01-26 16:36] VITALS: BP 124/63
[2018-01-26 16:53] LABS: APPEARANCE CLEAR ((CLEAR)); BILIRUBIN NEGATIVE; BLOOD NEGATIVE; COLOR AMBER ((YELLOW)); GLUCOSE (STRIP) NEGATIVE; KETONES 5; LEUKOCYTES NEGATIVE; NITRITE POSITIVE; PROTEIN (STRIP) NEGATIVE; SPECIFIC GRAVITY 1.011 (1.000-1.030)
[2018-01-26 16:58] LABS: BACTERIA NONE SEEN /HPF; EPITHELIAL CELLS RARE /HPF; MUCUS NONE SEEN /LPF; RED BLOOD CELLS 0-5 /HPF (0-5); UCUL ADDED? NO; WHITE BLOOD CELLS 0-5 /HPF (0-5)
[2018-01-26 19:46] VITALS: BP 129/59
[2018-01-26 20:12] LABS: BASE EXCESS 9.7 mEq/L (-3 to +3); BICARBONATE 34.3 mEq/L (22-26); CARBOXY HGB 0 % (0-5); COMMENTS - BLOOD GASES C+; DEVICE NCH; METHEMOGLOBIN 6.2 % (0-1.5); O2 FLOW 12 L/MIN; PCO2 46 mm Hg (35-45); PO2 146 mm Hg (80-100); SITE LR; TOTAL RESP RATE 18 resp/min; pH 7.48 (7.35-7.45)
[2018-01-26 23:33] VITALS: BP 109/56
[2018-01-27 03:57] VITALS: BP 94/55
[2018-01-27 04:01] VITALS: BP 92/50
[2018-01-27 05:26] VITALS: BP 102/56
[2018-01-27 06:19] LABS: BASOPHIL (%) 0.2 % (0-1); EOSINOPHIL (%) 0.2 % (0-5); HEMATOCRIT 32.2 % (36.0-46.0); HEMOGLOBIN 10.8 G/DL (11.9-15.5); IMMATURE GRANULOCYTE (%) 0.6 % (0.0-0.7); LYMPHOCYTE (%) 8.8 % (15-42); MCH 29.6 PG (29.0-34.0); MCHC 33.5 G/DL (30.0-36.0); MCV 88.2 FL (83-99); MONOCYTE (%) 4.5 % (3-12); MONOCYTE COUNT 0.5 K/uL (0-0.8); NEUTROPHIL (%) 85.7 % (45-76); NEUTROPHIL COUNT 10.1 K/uL (1.8-6.4); PLATELET COUNT 306 K/uL (156-360); RBC DIS.WIDTH-CV 16.1 % (11.8-14.6); RBC DIS.WIDTH-SD 51.8 % (39-53); RED BLOOD COUNT 3.65 M/uL (3.80-5.20); WHITE BLOOD COUNT 11.8 K/uL (4.1-10.2)
[2018-01-27 07:23] VITALS: BP 110/52
[2018-01-27 07:43] LABS: ALBUMIN 2.8 G/DL (3.2-4.8); ALKALINE PHOSPHATASE 61 IU/L (3-129); CHLORIDE 90 MEQ/L (99-109); CREATININE 0.4 MG/DL (0.6-1.3); GFR ESTIMATE (CALCULATED) > 59 mL/min/; IRON 65 MCG/DL (35-150); SODIUM 127 MEQ/L (136-147); TOTAL BILIRUBIN 0.4 MG/DL (0.0-1.0); TOTAL PROTEIN 4.8 G/DL (6.4-8.3); TRANSFERRIN (TIBC) 123.6 mg/dL (215-380); TRANSFERRIN SATUR. 53 % (20-55); UREA NITROGEN (BUN) 12 mg/dL (9-23)
[2018-01-27 07:44] LABS: ALT (GPT) 13 IU/L (3-49); AST (GOT) 18 IU/L (2-34); GLUCOSE 137 mg/dL (70-99); POTASSIUM 4.7 MEQ/L (3.7-5.4)
[2018-01-27 08:02] LABS: FERRITIN 57 NG/ML (10-291)
[2018-01-27 11:16] VITALS: BP 122/56
[2018-01-27 16:23] VITALS: BP 133/63
[2018-01-28 06:16] LABS: BASOPHIL (%) 0.2 % (0-1); EOSINOPHIL (%) 0.5 % (0-5); EOSINOPHIL COUNT 0.1 K/uL (0-0.3); HEMATOCRIT 34.4 % (36.0-46.0); HEMOGLOBIN 11.4 G/DL (11.9-15.5); IMMATURE GRANULOCYTE (%) 0.8 % (0.0-0.7); LYMPHOCYTE (%) 6.7 % (15-42); LYMPHOCYTE COUNT 0.9 K/uL (1.0-2.8); MCH 29.5 PG (29.0-34.0); MCHC 33.1 G/DL (30.0-36.0); MCV 88.9 FL (83-99); MONOCYTE (%) 2.4 % (3-12); MONOCYTE COUNT 0.3 K/uL (0-0.8); NEUTROPHIL (%) 89.4 % (45-76); NEUTROPHIL COUNT 11.8 K/uL (1.8-6.4); PLATELET COUNT 312 K/uL (156-360); RBC DIS.WIDTH-CV 16.3 % (11.8-14.6); RBC DIS.WIDTH-SD 52.7 % (39-53); RED BLOOD COUNT 3.87 M/uL (3.80-5.20); WHITE BLOOD COUNT 13.2 K/uL (4.1-10.2)
[2018-01-28 06:27] LABS: CHLORIDE 88 MEQ/L (99-109); POTASSIUM 4.6 MEQ/L (3.7-5.4); SODIUM 127 MEQ/L (136-147)
[2018-01-28 06:32] LABS: CREATININE 0.4 MG/DL (0.6-1.3); GFR ESTIMATE (CALCULATED) > 59 mL/min/; GLUCOSE 121 mg/dL (70-99); UREA NITROGEN (BUN) 12 mg/dL (9-23)
[2018-01-28 08:26] LABS: THYROTROPIN (TSH) 2.5 MIU/L (0.4-5.5)
[2018-01-28 09:26] VITALS: BP 117/58
[2018-01-28 12:43] VITALS: BP 126/61
[2018-01-28 16:34] VITALS: BP 131/59
[2018-01-28 19:00] VITALS: BP 156/74
[2018-01-28 21:40] VITALS: BP 152/72
[2018-01-28 23:59] VITALS: BP 137/63
[2018-01-29 04:59] VITALS: BP 154/68
[2018-01-29 06:51] LABS: BASOPHIL (%) 0.3 % (0-1); EOSINOPHIL (%) 0 % (0-5); HEMATOCRIT 33.2 % (36.0-46.0); IMMATURE GRANULOCYTE (%) 1.5 % (0.0-0.7); LYMPHOCYTE (%) 8.1 % (15-42); LYMPHOCYTE COUNT 1.3 K/uL (1.0-2.8); MCH 29.3 PG (29.0-34.0); MCHC 33.1 G/DL (30.0-36.0); MCV 88.3 FL (83-99); MONOCYTE (%) 6.8 % (3-12); MONOCYTE COUNT 1.1 K/uL (0-0.8); NEUTROPHIL (%) 83.3 % (45-76); NEUTROPHIL COUNT 13.2 K/uL (1.8-6.4); PLATELET COUNT 379 K/uL (156-360); RBC DIS.WIDTH-CV 16.5 % (11.8-14.6); RBC DIS.WIDTH-SD 53.3 % (39-53); RED BLOOD COUNT 3.76 M/uL (3.80-5.20); WHITE BLOOD COUNT 15.8 K/uL (4.1-10.2)
[2018-01-29 06:55] VITALS: BP 138/73
[2018-01-29 06:55] LABS: CHLORIDE 85 MEQ/L (99-109); CREATININE 0.4 MG/DL (0.6-1.3); GFR ESTIMATE (CALCULATED) > 59 mL/min/; GLUCOSE 108 mg/dL (70-99); POTASSIUM 4.3 MEQ/L (3.7-5.4); SODIUM 126 MEQ/L (136-147); UREA NITROGEN (BUN) 14 mg/dL (9-23)
[2018-01-29 07:38] LABS: STOOL OCCULT BLD 1ST SPECIMEN NEGATIVE
[2018-01-29 15:10] VITALS: BP 134/66
[2018-01-29 23:13] VITALS: BP 112/55
[2018-01-30 06:28] LABS: BASOPHIL (%) 0.2 % (0-1); EOSINOPHIL (%) 0 % (0-5); HEMATOCRIT 31.8 % (36.0-46.0); HEMOGLOBIN 10.5 G/DL (11.9-15.5); IMMATURE GRANULOCYTE (%) 1.4 % (0.0-0.7); LYMPHOCYTE (%) 8.5 % (15-42); LYMPHOCYTE COUNT 1.7 K/uL (1.0-2.8); MCH 29.5 PG (29.0-34.0); MCV 89.3 FL (83-99); MONOCYTE (%) 7.7 % (3-12); MONOCYTE COUNT 1.6 K/uL (0-0.8); NEUTROPHIL (%) 82.2 % (45-76); NEUTROPHIL COUNT 16.8 K/uL (1.8-6.4); PLATELET COUNT 377 K/uL (156-360); RBC DIS.WIDTH-CV 16.7 % (11.8-14.6); RBC DIS.WIDTH-SD 55.2 % (39-53); RED BLOOD COUNT 3.56 M/uL (3.80-5.20); WHITE BLOOD COUNT 20.4 K/uL (4.1-10.2)
[2018-01-30 06:51] LABS: ALBUMIN 3.3 G/DL (3.2-4.8); ALKALINE PHOSPHATASE 61 IU/L (3-129); ALT (GPT) 24 IU/L (3-49); AST (GOT) 14 IU/L (2-34); CHLORIDE 89 MEQ/L (99-109); CREATININE 0.5 MG/DL (0.6-1.3); GFR ESTIMATE (CALCULATED) > 59 mL/min/; GLUCOSE 111 mg/dL (70-99); POTASSIUM 4.7 MEQ/L (3.7-5.4); SODIUM 127 MEQ/L (136-147); TOTAL PROTEIN 5.4 G/DL (6.4-8.3); UREA NITROGEN (BUN) 20 mg/dL (9-23)
[2018-01-30 06:53] LABS: TOTAL BILIRUBIN 0.5 MG/DL (0.0-1.0)
[2018-01-30 15:00] VITALS: BP 97/55
[2018-01-30 23:33] VITALS: BP 92/56
[2018-01-31 05:55] LABS: BASOPHIL (%) 0.4 % (0-1); BASOPHIL COUNT 0.1 K/uL (0-0.1); EOSINOPHIL (%) 0.3 % (0-5); EOSINOPHIL COUNT 0.1 K/uL (0-0.3); HEMATOCRIT 32.2 % (36.0-46.0); HEMOGLOBIN 10.5 G/DL (11.9-15.5); IMMATURE GRANULOCYTE (%) 2.2 % (0.0-0.7); LYMPHOCYTE (%) 13.7 % (15-42); LYMPHOCYTE COUNT 2.5 K/uL (1.0-2.8); MCHC 32.6 G/DL (30.0-36.0); MONOCYTE (%) 9.4 % (3-12); MONOCYTE COUNT 1.7 K/uL (0-0.8); NEUTROPHIL COUNT 13.4 K/uL (1.8-6.4); PLATELET COUNT 345 K/uL (156-360); RBC DIS.WIDTH-CV 16.7 % (11.8-14.6); RBC DIS.WIDTH-SD 54.9 % (39-53); RED BLOOD COUNT 3.62 M/uL (3.80-5.20); WHITE BLOOD COUNT 18.2 K/uL (4.1-10.2)
[2018-01-31 06:13] LABS: CHLORIDE 87 MEQ/L (99-109); CREATININE 0.5 MG/DL (0.6-1.3); GFR ESTIMATE (CALCULATED) > 59 mL/min/; GLUCOSE 97 mg/dL (70-99); POTASSIUM 4.6 MEQ/L (3.7-5.4); SODIUM 126 MEQ/L (136-147); UREA NITROGEN (BUN) 24 mg/dL (9-23)
[2018-01-31 07:35] VITALS: BP 135/63
[2018-01-31 16:20] VITALS: BP 115/56
[2018-01-31 22:30] VITALS: BP 96/52
[2018-02-01 06:11] LABS: BASOPHIL (%) 0.6 % (0-1); BASOPHIL COUNT 0.1 K/uL (0-0.1); EOSINOPHIL (%) 1.9 % (0-5); EOSINOPHIL COUNT 0.3 K/uL (0-0.3); HEMATOCRIT 29.9 % (36.0-46.0); HEMOGLOBIN 9.9 G/DL (11.9-15.5); IMMATURE GRANULOCYTE (%) 3.6 % (0.0-0.7); LYMPHOCYTE (%) 16.2 % (15-42); LYMPHOCYTE COUNT 2.5 K/uL (1.0-2.8); MCH 29.2 PG (29.0-34.0); MCHC 33.1 G/DL (30.0-36.0); MCV 88.2 FL (83-99); MONOCYTE (%) 9.5 % (3-12); MONOCYTE COUNT 1.5 K/uL (0-0.8); NEUTROPHIL (%) 68.2 % (45-76); NEUTROPHIL COUNT 10.7 K/uL (1.8-6.4); PLATELET COUNT 327 K/uL (156-360); RBC DIS.WIDTH-CV 16.5 % (11.8-14.6); RBC DIS.WIDTH-SD 53.7 % (39-53); RED BLOOD COUNT 3.39 M/uL (3.80-5.20); WHITE BLOOD COUNT 15.7 K/uL (4.1-10.2)
[2018-02-01 06:36] LABS: CHLORIDE 87 MEQ/L (99-109); CREATININE 0.4 MG/DL (0.6-1.3); GFR ESTIMATE (CALCULATED) > 59 mL/min/; GLUCOSE 87 mg/dL (70-99); POTASSIUM 4.3 MEQ/L (3.7-5.4); SODIUM 126 MEQ/L (136-147); UREA NITROGEN (BUN) 26 mg/dL (9-23)
[2018-02-01 07:03] VITALS: BP 100/55
[2018-02-01 15:00] VITALS: BP 136/60
[2018-02-02] VITALS: BP 109/53
[2018-02-02 06:12] LABS: BASOPHIL (%) 0.6 % (0-1); BASOPHIL COUNT 0.1 K/uL (0-0.1); EOSINOPHIL (%) 0.6 % (0-5); EOSINOPHIL COUNT 0.1 K/uL (0-0.3); HEMATOCRIT 32.5 % (36.0-46.0); HEMOGLOBIN 10.7 G/DL (11.9-15.5); IMMATURE GRANULOCYTE (%) 4.1 % (0.0-0.7); LYMPHOCYTE COUNT 3.5 K/uL (1.0-2.8); MCH 29.2 PG (29.0-34.0); MCHC 32.9 G/DL (30.0-36.0); MCV 88.6 FL (83-99); MONOCYTE (%) 7.8 % (3-12); MONOCYTE COUNT 1.4 K/uL (0-0.8); NEUTROPHIL (%) 66.9 % (45-76); NEUTROPHIL COUNT 11.5 K/uL (1.8-6.4); PLATELET COUNT 387 K/uL (156-360); RBC DIS.WIDTH-CV 16.7 % (11.8-14.6); RBC DIS.WIDTH-SD 54.4 % (39-53); RED BLOOD COUNT 3.67 M/uL (3.80-5.20); WHITE BLOOD COUNT 17.2 K/uL (4.1-10.2)
[2018-02-02 06:35] LABS: CHLORIDE 89 MEQ/L (99-109); CREATININE 0.4 MG/DL (0.6-1.3); GFR ESTIMATE (CALCULATED) > 59 mL/min/; GLUCOSE 87 mg/dL (70-99); POTASSIUM 4.4 MEQ/L (3.7-5.4); SODIUM 126 MEQ/L (136-147); UREA NITROGEN (BUN) 24 mg/dL (9-23)
[2018-02-02 06:58] VITALS: BP 97/53
[2018-02-02 11:29] VITALS: BP 113/59
[2018-02-03] VITALS: BP 94/50
[2018-02-03 08:00] VITALS: BP 120/59
[2018-02-03 12:56] VITALS: BP 123/67
[2018-02-03 13:46] LABS: CHLORIDE 92 MEQ/L (99-109); CREATININE 0.4 MG/DL (0.6-1.3); GFR ESTIMATE (CALCULATED) > 59 mL/min/; POTASSIUM 4.7 MEQ/L (3.7-5.4); SODIUM 126 MEQ/L (136-147); UREA NITROGEN (BUN) 19 mg/dL (9-23)
[2018-02-03 13:47] LABS: GLUCOSE 109 mg/dL (70-99)
[2018-02-03 16:50] VITALS: BP 132/60
[2018-02-03 22:40] VITALS: BP 115/55
[2018-02-04 06:59] LABS: CHLORIDE 94 MEQ/L (99-109); CREATININE 0.4 MG/DL (0.6-1.3); GFR ESTIMATE (CALCULATED) > 59 mL/min/; GLUCOSE 86 mg/dL (70-99); POTASSIUM 4.2 MEQ/L (3.7-5.4); SODIUM 127 MEQ/L (136-147); UREA NITROGEN (BUN) 14 mg/dL (9-23)
[2018-02-04 07:25] VITALS: BP 136/61
[2018-02-04] MEDS ORDERED: PHENADOZ25 MG PR (13:41)
[2018-02-04] MEDS ORDERED: FLUCONAZOLE200 MG PO (13:42)
[2018-02-04] MEDS ORDERED: DUONEB 2.5-0.5 M3 ML AEROSOL (13:42)
[2018-02-04] MEDS ORDERED: CLEOCIN150 MG PO (13:42)
[2018-02-04] MEDS ORDERED: BENTYL10 MG PO (13:42)
[2018-02-04] MEDS ORDERED: HEPARIN SO5000 UNIT4 SC (13:43)
[2018-02-04] MEDS ORDERED: DUONEB 2.5-0.5 M3 ML PEP (13:43)
[2018-02-04] MEDS ORDERED: SENNA LAX8.6 MG PO (13:45)
[2018-02-04] MEDS ORDERED: AMITIZA24 MICROGR PO (13:45)
[2018-02-04] MEDS ORDERED: POLYETHYLENE GL17 GM PO (13:45)
[2018-02-04] MEDS ORDERED: DULERA 200 MCG/13 GM IH (13:45)
[2018-02-04] MEDS ORDERED: MUCINEX600 MG PO (13:45)
[2018-02-04] MEDS ORDERED: Milk Of Magnesia,MOM PO (13:45)
[2018-02-04] MEDS ORDERED: Tums,OsCal PO (13:45)
[2018-02-04] MEDS ORDERED: SUCRALFATE1 GM PO (13:46)
[2018-02-04] MEDS ORDERED: PREDNISONE20 MG PO (13:46)
[2018-02-04] MEDS ORDERED: OXYCONTIN10 MG PO (13:47)
[2018-02-04] MEDS ORDERED: KLONOPIN1 MG PO (13:47)
[2018-02-04] MEDS ORDERED: ENDOCET 5-3251 EACH PO (13:47)
[2018-02-04 15:00] VITALS: BP 128/62
[2018-02-04 15:16] VITALS: BP 136/61
[2018-02-05] MEDS ORDERED: CLEOCIN300 MG PO (17:40)
[2018-02-05] MEDS ORDERED: PERCOCET 5/31 TABLET PO (17:42)
[2018-02-05] MEDS ORDERED: DILAUDID2 MG PO (17:45)
== END 2018-02-04 18:41 | DRG 981 ==
LOC: EME 11:18 → 5EAST 14:12 → EDOF 14:12 → ENRESERV 14:22 → 5EAST 20:08 → ENPENDDIS 02-04 18:30 → 5EAST 02-04 18:41
PROVIDERS: Emergency Medicine; Family Medicine; Internal Medicine; Specialist
DX: J44.1 Chronic obstructive pulmonary disease with (acute) exacerbation (principal); J96.01 Acute respiratory failure with hypoxia; J44.0 Chronic obstructive pulmonary disease with (acute) lower respiratory infection; J20.9 Acute bronchitis, unspecified; B37.81 Candidal esophagitis; K59.00 Constipation, unspecified; K92.1 Melena; L89.314 Pressure ulcer of right buttock, stage 4; L89.324 Pressure ulcer of left buttock, stage 4; N39.0 Urinary tract infection, site not specified; E46 Unspecified protein-calorie malnutrition; R62.7 Adult failure to thrive; E87.1 Hypo-osmolality and hyponatremia; D64.9 Anemia, unspecified; K21.9 Gastro-esophageal reflux disease without esophagitis; F31.9 Bipolar disorder, unspecified; F41.9 Anxiety disorder, unspecified; M81.0 Age-related osteoporosis without current pathological fracture; G40.909 Epilepsy, unspecified, not intractable, without status epilepticus; K22.70 Barrett's esophagus without dysplasia; K29.70 Gastritis, unspecified, without bleeding; K44.9 Diaphragmatic hernia without obstruction or gangrene; M41.9 Scoliosis, unspecified; F11.20 Opioid dependence, uncomplicated; G89.4 Chronic pain syndrome; B95.61 Methicillin susceptible Staphylococcus aureus infection as the cause of diseases classified elsewhere; F17.210 Nicotine dependence, cigarettes, uncomplicated; Z96.649 Presence of unspecified artificial hip joint; Z68.1 Body mass index [BMI] 19.9 or less, adult; Z98.1 Arthrodesis status; I25.2 Old myocardial infarction; Z88.0 Allergy status to penicillin; Z85.038 Personal history of other malignant neoplasm of large intestine; Z90.49 Acquired absence of other specified parts of digestive tract
CPT/HCPCS: 36600; 71045; 71046; 71275; 74018; 74177; 80048; 80053; 81003; 82271; 82272; 82728; 82746; 82803; 83516 90; 83540; 83605; 84134; 84443; 84466; 85025; 85027; 86850; 86900; 86901; 86920; 87040; 87070; 87075; 87077; 87147; 87186; 87205; 88305; 88342 TC; 93306; 93970; 94640; 94640 76; 94667; 94668; 94760; 94799; 97530 GP; 99202; 99281; 99284; J0692; J0696; J1170; J1644; J1720; J1940; J2060; J2270; J2405; J2920; J2930; J3475; J7030; J7050; J7512; P9016

== ENCOUNTER 2018-02-05 16:15 | Emergency (ER) | payer BC, OTHER ==
[~2018-02-05] VITALS: Ht 152.4 cm; Wt 43.5 kg
[~2018-02-05 16:15] MED LIST changes: +AMITIZA24 MICROGR PO; +BENTYL10 MG PO; +CLEOCIN150 MG PO; +DULERA 200 MCG/13 GM IH; +DUONEB 2.5-0.5 M3 ML AEROSOL; +DUONEB 2.5-0.5 M3 ML PEP; +ENDOCET 5-3251 EACH PO; +FLUCONAZOLE200 MG PO; +HEPARIN SO5000 UNIT4 SC; +KLONOPIN1 MG PO; +MUCINEX600 MG PO; +Milk Of Magnesia,MOM PO; +OXYCONTIN10 MG PO; +PHENADOZ25 MG PR; +POLYETHYLENE GL17 GM PO; +PREDNISONE20 MG PO; +SENNA LAX8.6 MG PO; +SUCRALFATE1 GM PO; +Tums,OsCal PO
[2018-02-05 17:27] LABS: HEMATOCRIT 31.8 % (36.0-46.0); HEMOGLOBIN 11.1 G/DL (11.9-15.5); MCH 30.7 PG (29.0-34.0); MCHC 34.9 G/DL (30.0-36.0); MCV 88.1 FL (83-99); PLATELET COUNT 449 K/uL (156-360); RBC DIS.WIDTH-CV 16.2 % (11.8-14.6); RED BLOOD COUNT 3.61 M/uL (3.80-5.20); WHITE BLOOD COUNT 19.4 K/uL (4.1-10.2)
[2018-02-05] MEDS ORDERED: CLEOCIN300 MG PO (17:40)
[2018-02-05] MEDS ORDERED: PERCOCET 5/31 TABLET PO (17:42)
[2018-02-05 17:43] LABS: CHLORIDE 90 mEq/L (99-109); POTASSIUM 3.6 mEq/L (3.7-5.4); SODIUM 130 mEq/L (136-147)
[2018-02-05 17:45] LABS: GLUCOSE 97 mg/dL (70-99)
[2018-02-05] MEDS ORDERED: DILAUDID2 MG PO (17:45)
[2018-02-05 17:49] LABS: CREATININE 0.6 mg/dL (0.6-1.3); GFR ESTIMATE (CALCULATED) > 59 mL/min/
[2018-02-05 17:50] LABS: UREA NITROGEN (BUN) 18 mg/dL (9-23)
[2018-02-05 18:50] VITALS: BP 120/64
== END 2018-02-05 18:52 | disposition home or self-care (01) ==
LOC: EME 16:15
PROVIDERS: Emergency Medicine
DX: L89.159 Pressure ulcer of sacral region, unspecified stage (principal); L03.90 Cellulitis, unspecified; F31.9 Bipolar disorder, unspecified; I25.2 Old myocardial infarction; K21.9 Gastro-esophageal reflux disease without esophagitis; R56.9 Unspecified convulsions; F41.9 Anxiety disorder, unspecified; F32.9 Major depressive disorder, single episode, unspecified; F17.200 Nicotine dependence, unspecified, uncomplicated; Z79.891 Long term (current) use of opiate analgesic; Z87.440 Personal history of urinary (tract) infections; Z85.038 Personal history of other malignant neoplasm of large intestine; Z90.49 Acquired absence of other specified parts of digestive tract; Z98.1 Arthrodesis status; Z98.890 Other specified postprocedural states; Z88.0 Allergy status to penicillin
CPT/HCPCS: 80048; 83605; 85027; 87040; 99281; 99284; J3010

== ENCOUNTER 2018-02-18 16:34 | Inpatient (IN) | payer BC, OTHER ==
[~2018-02-18] VITALS: Ht 160 cm; Wt 45.5 kg
[~2018-02-18 16:34] MED LIST changes: +CLEOCIN300 MG PO
[2018-02-18 17:43] LABS: CARBON DIOXIDE (BICARBONATE) 33.9 MEQ/L (20-31)
[2018-02-18 17:47] LABS: HEMOGLOBIN 11.2 G/DL (11.9-15.5); MCH 31.9 PG (29.0-34.0); MCHC 32.9 G/DL (30.0-36.0); RED BLOOD COUNT 3.51 M/uL (3.80-5.20); WHITE BLOOD COUNT 17.1 K/uL (4.1-10.2)
[2018-02-18 17:51] LABS: ALBUMIN 3.7 g/dL (3.2-4.8)
[2018-02-18 17:52] LABS: CHLORIDE 98 mEq/L (99-109); POTASSIUM 3.2 mEq/L (3.7-5.4); SODIUM 141 mEq/L (136-147)
[2018-02-18 17:54] LABS: GLUCOSE 156 mg/dL (70-99); TOTAL PROTEIN 6.3 g/dL (6.4-8.3)
[2018-02-18 17:56] LABS: TOTAL BILIRUBIN 0.9 mg/dL (0.0-1.0)
[2018-02-18 17:57] LABS: ALKALINE PHOSPHATASE 79 IU/L (3-129)
[2018-02-18 17:58] LABS: CREATININE 0.7 mg/dL (0.6-1.3); GFR ESTIMATE (CALCULATED) > 59 mL/min/
[2018-02-18 17:59] LABS: AST (GOT) 13 IU/L (2-34); UREA NITROGEN (BUN) 17 mg/dL (9-23)
[2018-02-18 18:00] LABS: ALT (GPT) 22 IU/L (3-49)
[2018-02-18 18:01] LABS: LIPASE 15 U/L (1.0-51.0)
[2018-02-18 18:04] LABS: TROP-I INTERPRETATION NEGATIVE; TROPONIN-I < 0.01 ng/mL (0.0-0.30)
[2018-02-18 18:20] LABS: MCV 96.9 FL (83-99)
[2018-02-18 18:36] LABS: BASOPHIL (%) 0.2 % (0-1); EOSINOPHIL (%) 0.2 % (0-5); IMMATURE GRANULOCYTE (%) 0.5 % (0.0-0.7); LYMPHOCYTE COUNT 0.5 K/uL (1.0-2.8); NEUTROPHIL (%) 90.1 % (45-76); NEUTROPHIL COUNT 15.4 K/uL (1.8-6.4)
[2018-02-18 22:08] LABS: APPEARANCE CLEAR ((CLEAR)); BILIRUBIN SMALL; BLOOD NEGATIVE; COLOR AMBER ((YELLOW)); GLUCOSE (STRIP) 50; KETONES NEGATIVE; LEUKOCYTES NEGATIVE; NITRITE POSITIVE; PROTEIN (STRIP) 30; SPECIFIC GRAVITY 1.019 (1.000-1.030)
[2018-02-18 22:30] LABS: EPITHELIAL CELLS RARE /HPF; MUCUS 1+ /LPF; RED BLOOD CELLS 0-5 /HPF (0-5); WHITE BLOOD CELLS 0-5 /HPF (0-5)
[2018-02-18 22:31] LABS: BACTERIA RARE /HPF; UCUL ADDED? NO
[2018-02-19 02:01] VITALS: BP 98/67
[2018-02-19 07:02] LABS: BASOPHIL (%) 0.2 % (0-1); EOSINOPHIL (%) 0.5 % (0-5); EOSINOPHIL COUNT 0.1 K/uL (0-0.3); HEMATOCRIT 26.8 % (36.0-46.0); IMMATURE GRANULOCYTE (%) 0.6 % (0.0-0.7); LYMPHOCYTE (%) 9.9 % (15-42); LYMPHOCYTE COUNT 1.8 K/uL (1.0-2.8); MCH 31.6 PG (29.0-34.0); MCHC 32.1 G/DL (30.0-36.0); MCV 98.5 FL (83-99); MONOCYTE (%) 6.8 % (3-12); MONOCYTE COUNT 1.2 K/uL (0-0.8); NEUTROPHIL COUNT 14.9 K/uL (1.8-6.4); RBC DIS.WIDTH-CV 15.9 % (11.8-14.6); RBC DIS.WIDTH-SD 57.6 % (39-53); WHITE BLOOD COUNT 18.2 K/uL (4.1-10.2)
[2018-02-19 07:03] VITALS: BP 81/53
[2018-02-19 07:03] LABS: HEMOGLOBIN 8.6 G/DL (11.9-15.5); PLATELET COUNT 208 K/uL (156-360); RED BLOOD COUNT 2.72 M/uL (3.80-5.20)
[2018-02-19 07:17] LABS: CHLORIDE 101 MEQ/L (99-109); CREATININE 0.4 MG/DL (0.6-1.3); GFR ESTIMATE (CALCULATED) > 59 mL/min/; SODIUM 136 MEQ/L (136-147); UREA NITROGEN (BUN) 14 mg/dL (9-23)
[2018-02-19 07:29] LABS: GLUCOSE 90 mg/dL (70-99)
[2018-02-19 15:10] VITALS: BP 126/60
[2018-02-19 23:40] VITALS: BP 105/59
[2018-02-20 06:45] LABS: BASOPHIL (%) 0.1 % (0-1); EOSINOPHIL (%) 0 % (0-5); HEMATOCRIT 26.6 % (36.0-46.0); HEMOGLOBIN 8.4 G/DL (11.9-15.5); IMMATURE GRANULOCYTE (%) 0.7 % (0.0-0.7); LYMPHOCYTE (%) 5.1 % (15-42); LYMPHOCYTE COUNT 0.7 K/uL (1.0-2.8); MCH 31.5 PG (29.0-34.0); MCHC 31.6 G/DL (30.0-36.0); MCV 99.6 FL (83-99); MONOCYTE COUNT 0.6 K/uL (0-0.8); NEUTROPHIL (%) 90.1 % (45-76); PLATELET COUNT 219 K/uL (156-360); RBC DIS.WIDTH-CV 15.4 % (11.8-14.6); RBC DIS.WIDTH-SD 56.5 % (39-53); RED BLOOD COUNT 2.67 M/uL (3.80-5.20); WHITE BLOOD COUNT 14.4 K/uL (4.1-10.2)
[2018-02-20 07:25] LABS: CHLORIDE 101 MEQ/L (99-109); CREATININE 0.3 MG/DL (0.6-1.3); GFR ESTIMATE (CALCULATED) > 59 mL/min/; POTASSIUM 4.4 MEQ/L (3.7-5.4); SODIUM 132 MEQ/L (136-147); UREA NITROGEN (BUN) 16 mg/dL (9-23)
[2018-02-20 07:51] LABS: GLUCOSE 139 mg/dL (70-99)
[2018-02-20 08:15] VITALS: BP 96/50
[2018-02-20] MEDS ORDERED: DIFLUCAN200 MG PO (11:16)
[2018-02-20] MEDS ORDERED: TUMS500 MG PO (11:18)
[2018-02-20] MEDS ORDERED: MIRALAX17 GM PO (11:19)
[2018-02-20] MEDS ORDERED: PROAIR HFA8.5 GM IH (11:20)
[2018-02-20 17:03] VITALS: BP 105/57
[2018-02-21] VITALS: BP 117/63
[2018-02-21 06:41] LABS: BASOPHIL (%) 0.2 % (0-1); EOSINOPHIL (%) 0 % (0-5); HEMATOCRIT 30.4 % (36.0-46.0); IMMATURE GRANULOCYTE (%) 0.9 % (0.0-0.7); LYMPHOCYTE (%) 9.3 % (15-42); LYMPHOCYTE COUNT 1.5 K/uL (1.0-2.8); MCH 31.8 PG (29.0-34.0); MCHC 32.9 G/DL (30.0-36.0); MCV 96.8 FL (83-99); MONOCYTE (%) 5.2 % (3-12); MONOCYTE COUNT 0.9 K/uL (0-0.8); NEUTROPHIL (%) 84.4 % (45-76); PLATELET COUNT 263 K/uL (156-360); RBC DIS.WIDTH-CV 15.2 % (11.8-14.6); RBC DIS.WIDTH-SD 53.2 % (39-53); RED BLOOD COUNT 3.14 M/uL (3.80-5.20); WHITE BLOOD COUNT 16.6 K/uL (4.1-10.2)
[2018-02-21 06:54] LABS: CHLORIDE 91 MEQ/L (99-109); CREATININE 0.4 MG/DL (0.6-1.3); GFR ESTIMATE (CALCULATED) > 59 mL/min/; GLUCOSE 117 mg/dL (70-99); POTASSIUM 4.2 MEQ/L (3.7-5.4); SODIUM 130 MEQ/L (136-147); UREA NITROGEN (BUN) 14 mg/dL (9-23)
[2018-02-21 08:20] VITALS: BP 107/54
[2018-02-21 17:13] VITALS: BP 112/65
[2018-02-22 00:11] VITALS: BP 95/54
[2018-02-22 07:11] LABS: BASOPHIL (%) 0.4 % (0-1); EOSINOPHIL (%) 0.3 % (0-5); HEMATOCRIT 28.7 % (36.0-46.0); HEMOGLOBIN 9.4 G/DL (11.9-15.5); IMMATURE GRANULOCYTE (%) 1.8 % (0.0-0.7); LYMPHOCYTE (%) 15.4 % (15-42); LYMPHOCYTE COUNT 1.8 K/uL (1.0-2.8); MCH 31.5 PG (29.0-34.0); MCHC 32.8 G/DL (30.0-36.0); MCV 96.3 FL (83-99); MONOCYTE (%) 10.2 % (3-12); MONOCYTE COUNT 1.2 K/uL (0-0.8); NEUTROPHIL (%) 71.9 % (45-76); NEUTROPHIL COUNT 8.2 K/uL (1.8-6.4); PLATELET COUNT 252 K/uL (156-360); RBC DIS.WIDTH-CV 14.7 % (11.8-14.6); RBC DIS.WIDTH-SD 51.5 % (39-53); RED BLOOD COUNT 2.98 M/uL (3.80-5.20); WHITE BLOOD COUNT 11.4 K/uL (4.1-10.2)
[2018-02-22 07:36] VITALS: BP 109/60
[2018-02-22 07:45] LABS: CHLORIDE 90 MEQ/L (99-109); CREATININE 0.4 MG/DL (0.6-1.3); GFR ESTIMATE (CALCULATED) > 59 mL/min/; POTASSIUM 3.9 MEQ/L (3.7-5.4); SODIUM 128 MEQ/L (136-147); UREA NITROGEN (BUN) 19 mg/dL (9-23)
[2018-02-22 07:49] LABS: GLUCOSE 86 mg/dL (70-99)
[2018-02-22 16:03] VITALS: BP 110/63
[2018-02-23] VITALS: BP 121/55
[2018-02-23 07:21] LABS: CHLORIDE 84 MEQ/L (99-109); CREATININE 0.5 MG/DL (0.6-1.3); GFR ESTIMATE (CALCULATED) > 59 mL/min/; GLUCOSE 91 mg/dL (70-99); POTASSIUM 4.1 MEQ/L (3.7-5.4); SODIUM 132 MEQ/L (136-147); UREA NITROGEN (BUN) 27 mg/dL (9-23)
[2018-02-23 07:40] VITALS: BP 105/62
[2018-02-23 07:45] LABS: BASOPHIL (%) 0.7 % (0-1); BASOPHIL COUNT 0.1 K/uL (0-0.1); EOSINOPHIL (%) 0.1 % (0-5); HEMATOCRIT 33.8 % (36.0-46.0); HEMOGLOBIN 11.2 G/DL (11.9-15.5); IMMATURE GRANULOCYTE (%) 3.3 % (0.0-0.7); LYMPHOCYTE (%) 16.2 % (15-42); LYMPHOCYTE COUNT 2.9 K/uL (1.0-2.8); MCH 31.4 PG (29.0-34.0); MCHC 33.1 G/DL (30.0-36.0); MCV 94.7 FL (83-99); MONOCYTE (%) 11.8 % (3-12); MONOCYTE COUNT 2.1 K/uL (0-0.8); NEUTROPHIL (%) 67.9 % (45-76); NRBC (%) 0.2 /100 WBC (0-0); RBC DIS.WIDTH-CV 14.6 % (11.8-14.6); RBC DIS.WIDTH-SD 50.5 % (39-53); RED BLOOD COUNT 3.57 M/uL (3.80-5.20); WHITE BLOOD COUNT 17.7 K/uL (4.1-10.2)
[2018-02-23 07:48] LABS: PLATELET COUNT 365 K/uL (156-360)
[2018-02-23] MEDS ORDERED: LEVOFLOXACIN750 MG PO (14:22)
[2018-02-23] MEDS ORDERED: DOXYCYCLINE HY100 M3 PO (14:22)
[2018-02-23] MEDS ORDERED: PREDNISONE20 MG PO (14:23)
== END 2018-02-23 16:49 | disposition home health service (06) | DRG 193 ==
LOC: EME → EDBD 16:34 → EME 16:34 → EDOF 19:49 → 5SOUTH 19:49 → ENRESERV 19:53 → 5EAST 22:59 → CANRESERV 23:06 → ENRESERV 23:06 → EDOF 23:07 → ENRESERV 23:11 → 5SOUTH 02-19 01:51
PROVIDERS: Emergency Medicine; Family Medicine
DX: J18.9 Pneumonia, unspecified organism (principal); L89.314 Pressure ulcer of right buttock, stage 4; L89.224 Pressure ulcer of left hip, stage 4; Z68.1 Body mass index [BMI] 19.9 or less, adult; F11.20 Opioid dependence, uncomplicated; E46 Unspecified protein-calorie malnutrition; E87.1 Hypo-osmolality and hyponatremia; J44.0 Chronic obstructive pulmonary disease with (acute) lower respiratory infection; J44.1 Chronic obstructive pulmonary disease with (acute) exacerbation; N39.0 Urinary tract infection, site not specified; F33.9 Major depressive disorder, recurrent, unspecified; D64.9 Anemia, unspecified; Y95 Nosocomial condition; R62.7 Adult failure to thrive; K59.03 Drug induced constipation; T50.7X5A Adverse effect of analeptics and opioid receptor antagonists, initial encounter; Z96.641 Presence of right artificial hip joint; T40.2X5A Adverse effect of other opioids, initial encounter; F17.210 Nicotine dependence, cigarettes, uncomplicated; F41.9 Anxiety disorder, unspecified; G40.909 Epilepsy, unspecified, not intractable, without status epilepticus; G89.4 Chronic pain syndrome; I25.10 Atherosclerotic heart disease of native coronary artery without angina pectoris; K21.9 Gastro-esophageal reflux disease without esophagitis; M19.90 Unspecified osteoarthritis, unspecified site; M41.9 Scoliosis, unspecified; M81.0 Age-related osteoporosis without current pathological fracture; N81.6 Rectocele; R33.9 Retention of urine, unspecified; Z99.81 Dependence on supplemental oxygen; Z90.710 Acquired absence of both cervix and uterus; Z90.49 Acquired absence of other specified parts of digestive tract; Z88.0 Allergy status to penicillin; Z87.440 Personal history of urinary (tract) infections; Z87.01 Personal history of pneumonia (recurrent); Z88.6 Allergy status to analgesic agent; Z98.1 Arthrodesis status; I25.2 Old myocardial infarction; Z91.19 Patient's noncompliance with other medical treatment and regimen; Z79.51 Long term (current) use of inhaled steroids; Z85.038 Personal history of other malignant neoplasm of large intestine; Z83.3 Family history of diabetes mellitus; Z82.49 Family history of ischemic heart disease and other diseases of the circulatory system; Z82.3 Family history of stroke; J96.21 Acute and chronic respiratory failure with hypoxia
CPT/HCPCS: 36415; 71045; 71046; 76770; 80048; 80053; 81003; 82803; 83605; 83690; 84484; 85025; 85651; 86140; 87040; 87070; 87075; 87205; 93005; 94640; 94640 76; 94760; 94799; 97597; 99202; 99281; 99285; A6214; J0456; J0574; J1650; J1956; J3370; J7030; J7050; J7120; J7512

== ENCOUNTER → 2018-03-11 | Outpatient (CLI) | payer BC, OTHER ==
[~2018-03-11] MED LIST changes: +DIFLUCAN200 MG PO; +DOXYCYCLINE HY100 M3 PO; +LEVOFLOXACIN750 MG PO; +MIRALAX17 GM PO; +PROAIR HFA8.5 GM IH; +TUMS500 MG PO
== END | disposition home or self-care (01) ==
LOC: PICC 03-10 13:00
DX: M86.9 Osteomyelitis, unspecified (principal); Z88.0 Allergy status to penicillin
CPT/HCPCS: 76937

== ENCOUNTER 2018-03-12 09:32 | Emergency (ER) | payer BC, OTHER ==
[~2018-03-12] VITALS: Ht 152.4 cm; Wt 45.2 kg
[2018-03-12 10:57] LABS: BASOPHIL (%) 0.5 % (0-1); EOSINOPHIL COUNT 0.1 K/uL (0-0.3); HEMATOCRIT 23.5 % (36.0-46.0); HEMOGLOBIN 7.7 G/DL (11.9-15.5); IMMATURE GRANULOCYTE (%) 0.3 % (0.0-0.7); LYMPHOCYTE (%) 22.8 % (15-42); LYMPHOCYTE COUNT 1.4 K/uL (1.0-2.8); MCH 32.1 PG (29.0-34.0); MCHC 32.8 G/DL (30.0-36.0); MCV 97.9 FL (83-99); MONOCYTE (%) 10.5 % (3-12); MONOCYTE COUNT 0.7 K/uL (0-0.8); NEUTROPHIL (%) 64.9 % (45-76); PLATELET COUNT 212 K/uL (156-360); RBC DIS.WIDTH-CV 14.2 % (11.8-14.6); RBC DIS.WIDTH-SD 50.4 % (39-53); WHITE BLOOD COUNT 6.2 K/uL (4.1-10.2)
[2018-03-12 11:03] LABS: INTER. NORMALIZED RATIO 1.2
[2018-03-12 11:06] LABS: PTT 28.2 SEC (25-37)
[2018-03-12 11:10] LABS: CHLORIDE 99 mEq/L (99-109); POTASSIUM 3.9 mEq/L (3.7-5.4)
[2018-03-12 11:11] LABS: GLUCOSE 95 mg/dL (70-99)
[2018-03-12 11:12] LABS: SODIUM 140 mEq/L (136-147)
[2018-03-12 11:15] LABS: CREATININE 0.7 mg/dL (0.6-1.3); GFR ESTIMATE (CALCULATED) > 59 mL/min/
[2018-03-12 11:16] LABS: UREA NITROGEN (BUN) 16 mg/dL (9-23)
[2018-03-12 11:22] LABS: TROP-I INTERPRETATION NEGATIVE; TROPONIN-I < 0.01 ng/mL (0.0-0.30)
[2018-03-12 13:00] VITALS: BP 111/96
[2018-03-12 13:16] VITALS: BP 126/59
[2018-03-12 14:16] VITALS: BP 147/66
[2018-03-12 15:45] VITALS: BP 111/57
== END 2018-03-12 16:41 | disposition home or self-care (01) ==
LOC: EME 09:32
PROVIDERS: Nurse Practitioner Family
PROC: 30233N1 Transfusion of Nonautologous Red Blood Cells into Peripheral Vein, Percutaneous Approach (ICD-10-PCS; principal; 2018-03-12)
DX: D64.9 Anemia, unspecified (principal); J44.9 Chronic obstructive pulmonary disease, unspecified; Z99.81 Dependence on supplemental oxygen; L89.100 Pressure ulcer of unspecified part of back, unstageable; K21.9 Gastro-esophageal reflux disease without esophagitis; F31.9 Bipolar disorder, unspecified; F32.9 Major depressive disorder, single episode, unspecified; F41.9 Anxiety disorder, unspecified; R56.9 Unspecified convulsions; I25.2 Old myocardial infarction; Z85.038 Personal history of other malignant neoplasm of large intestine; Z87.440 Personal history of urinary (tract) infections; Z90.49 Acquired absence of other specified parts of digestive tract; Z98.1 Arthrodesis status; Z87.891 Personal history of nicotine dependence; Z88.0 Allergy status to penicillin; Z88.6 Allergy status to analgesic agent
CPT/HCPCS: 71046; 80048; 84484; 85025; 85610; 85730; 86850; 86900; 86901; 86920; 93005; 99281; 99285; J3010; P9040

== ENCOUNTER 2018-04-28 10:00 | Day surgery (SDC) | payer BC, OTHER ==
[~2018-04-28] VITALS: Ht 152.4 cm; Wt 47.6 kg
[~2018-04-28 10:00] MED LIST changes: +ELAVIL25 MG PO; +IV ANTIBIOTIC IV; +PYRIDIUM200 MG PO
[2018-04-28] MEDS ORDERED: ANCEF,KEFZOL1 GM IV (10:52)
[2018-04-28 11:48] VITALS: BP 120/60
[2018-04-28 14:48] VITALS: BP 96/48
[2018-04-28 16:07] VITALS: BP 96/48
== END 2018-04-28 16:09 | disposition home or self-care (01) ==
LOC: SDC 10:00
DX: L89.140 Pressure ulcer of left lower back, unstageable (principal); L89.130 Pressure ulcer of right lower back, unstageable; J44.9 Chronic obstructive pulmonary disease, unspecified; G40.909 Epilepsy, unspecified, not intractable, without status epilepticus; Z88.0 Allergy status to penicillin; I25.2 Old myocardial infarction
CPT/HCPCS: 71045; 87070; 87075; 87205; 88305; 88311; J0131; J1170; J1885; J2405; J3010

== ENCOUNTER 2018-05-01 17:38 | Inpatient (IN) | payer BC, OTHER ==
[~2018-05-01] VITALS: Ht 152.4 cm; Wt 54.0 kg
[~2018-05-01 17:38] MED LIST changes: +ANCEF,KEFZOL1 GM IV
[2018-05-01 21:12] LABS: MCH 32.3 PG (29.0-34.0); MCHC 31.3 G/DL (30.0-36.0); MCV 103.4 FL (83-99); PLATELET COUNT 235 K/uL (156-360); RBC DIS.WIDTH-SD 59.9 % (39-53); WHITE BLOOD COUNT 7.3 K/uL (4.1-10.2)
[2018-05-01 21:13] LABS: HEMOGLOBIN 7.5 G/DL (11.9-15.5); RED BLOOD COUNT 2.32 M/uL (3.80-5.20)
[2018-05-01 21:24] LABS: ALBUMIN 3.2 g/dL (3.2-4.8); CHLORIDE 104 mEq/L (99-109); POTASSIUM 3.7 mEq/L (3.7-5.4); SODIUM 140 mEq/L (136-147)
[2018-05-01 21:26] LABS: GLUCOSE 95 mg/dL (70-99)
[2018-05-01 21:27] LABS: TOTAL PROTEIN 5.5 g/dL (6.4-8.3)
[2018-05-01 21:28] LABS: TOTAL BILIRUBIN 0.6 mg/dL (0.0-1.0)
[2018-05-01 21:30] LABS: ALKALINE PHOSPHATASE 68 IU/L (3-129); CREATININE 0.7 mg/dL (0.6-1.3); GFR ESTIMATE (CALCULATED) > 59 mL/min/
[2018-05-01 21:31] LABS: UREA NITROGEN (BUN) 7 mg/dL (9-23)
[2018-05-01 21:32] LABS: AST (GOT) 18 IU/L (2-34)
[2018-05-01 21:33] LABS: ALT (GPT) 5 IU/L (3-49)
[2018-05-02 04:08] VITALS: BP 113/51
[2018-05-02 07:00] VITALS: BP 95/44
[2018-05-02 15:15] VITALS: BP 133/66
[2018-05-02 22:55] VITALS: BP 141/63
[2018-05-03 07:20] VITALS: BP 129/58
[2018-05-03 16:20] VITALS: BP 111/57
== END 2018-05-03 19:23 | disposition home or self-care (01) | DRG 939 ==
LOC: EME 17:38 → EDOF 23:45 → 5EAST 23:45 → ENRESERV 05-02 00:56 → 5EAST 05-02 03:57
PROVIDERS: Emergency Medicine
DX: G89.18 Other acute postprocedural pain (principal); L89.314 Pressure ulcer of right buttock, stage 4; L89.324 Pressure ulcer of left buttock, stage 4; M86.8X8 Other osteomyelitis, other site; J44.9 Chronic obstructive pulmonary disease, unspecified; R62.7 Adult failure to thrive; K59.03 Drug induced constipation; T40.2X5A Adverse effect of other opioids, initial encounter; G89.4 Chronic pain syndrome; M41.9 Scoliosis, unspecified; G40.909 Epilepsy, unspecified, not intractable, without status epilepticus; I25.2 Old myocardial infarction; K21.9 Gastro-esophageal reflux disease without esophagitis; M19.90 Unspecified osteoarthritis, unspecified site; M81.0 Age-related osteoporosis without current pathological fracture; F41.9 Anxiety disorder, unspecified; F31.9 Bipolar disorder, unspecified; F17.210 Nicotine dependence, cigarettes, uncomplicated; Z85.038 Personal history of other malignant neoplasm of large intestine; Z87.440 Personal history of urinary (tract) infections; Z96.649 Presence of unspecified artificial hip joint; Z95.5 Presence of coronary angioplasty implant and graft; Z79.891 Long term (current) use of opiate analgesic; Z79.2 Long term (current) use of antibiotics; Z74.01 Bed confinement status; Z98.1 Arthrodesis status; Z88.0 Allergy status to penicillin; Z90.49 Acquired absence of other specified parts of digestive tract; Z90.710 Acquired absence of both cervix and uterus
CPT/HCPCS: 71045; 74177; 80053; 83605; 85027; 87040; 87070; 87075; 87205; 88305; 88311; 94760; 94799; 99281; 99285; J0131; J0692; J1170; J1885; J2270; J2405; J3010; J3370; J7030